=== PATIENT | female | born 1930 | race Caucasian/White ===

== ENCOUNTER 2016-07-21 11:46 | Inpatient (IN) ==
[2016-07-21] MEDS ORDERED: Ipratropium/Albuterol Neb 3 ML IH ONE (12:12)
--- NOTE | 2016-07-21 12:23 | Emergency Department Note ---
Disposition Clinical Impression: CHF (congestive heart failure) Disposition: Admitted As Inpatient Condition: Fair Referrals: Levar Shelton DO [Primary Care Provider] - Forms: ED Satisfaction Letter Time of Disposition: 13:32 (janna GILLETTE ) URI/Sore Throat HPI - General Chief Complaint: ED Upper Respiratory Infection Stated Complaint: cough trouble breathing Time Seen by Provider: 07/21/16 11:52 Source: patient Mode of arrival: ambulatory Limitations: no limitations Nursing Notes Reviewed: Yes Vital Signs Reviewed: Yes - History of Present Illness HPI Narrative: Patient's had increasing shortness of breath since her recent decrease of her Lasix 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 did not like urinating so frequently so he decreased her to 20 mg since then she has had progressively increasing shortness of breath she is having shortness of breath she is having cough and congestion she has had no apnea and no cyanosis increasing dyspnea with activity she has had some orthopnea patient denies any blurred vision double vision loss vision this morning was unable to even drink coffee cup of coffee because of shortness of breath patient now here for evaluation Pt Subjective Complaint: cough, rhinorrhea, nasal congestion Duration: constant Severity: mild Severity scale (1-10): 2 Improves with: nothing Worsens with: nothing Associated symptoms: Reports: cough, shortness of breath. Denies: fever, chills , voice changes, myalgias, diaphoresis, headache, nasal congestion, sore throat , stiff neck, chest pain, abdominal pain, nausea, vomiting, diarrhea, dysuria, epistaxis, ear pain Treatments prior to arrival: none - Related Data Home Medications Medication Instructions Recorded Confirmed Aspirin [Adult Low Dose Aspirin EC] 81 mg PO DAILY 07/01/15 07/21/16 Vit A/Vit C/Vit E/Zinc/Copper 1 tab PO ACHS 07/01/15 07/21/16 [Preservision Areds Tablet] Calcium Carbonate [Calcium] 500 mg PO DAILY 03/14/16 07/21/16 Carvedilol [Coreg] 6.25 mg PO BIDWM 07/21/16 07/21/16 Previous Rx's Medication Instructions Recorded Potassium Chloride 10 meq PO DAILY #30 tab.er.prt 10/24/15 Furosemide [Lasix] 20 mg PO DAILY PRN #90 tablet 10/29/15 Lisinopril [Zestril] 5 mg PO DAILY #90 tablet 10/29/15 Acetaminophen [Tylenol] 650 mg PO Q4HR PRN #0 tablet 03/15/16 Allergies Allergy/AdvReac Type Severity Reaction Status Date / Time No Known Allergies Allergy Verified 07/21/16 11:47 All systems ED: reviewed and negative except as stated. Constitutional: Reports: weakness. Denies: fever, chills Eyes: Denies: vision change ENT ED: Denies: ear pain, throat pain Cardiovascular: Reports: dyspnea on exertion, paroxysmal nocturnal dyspnea. Denies: chest pain, palpitations Respiratory: Reports: wheezes Gastrointestinal: Denies: abdominal pain, nausea Genitourinary: Denies: urgency, dyspareunia Musculoskeletal: Denies: back pain, neck pain Integumentary: Denies: rash, abrasion Neurological: Denies: headache Psychiatric: Denies: anxiety Endocrine: Denies: fatigue Hematological/Lymphatic: Denies: easy bleeding Allergic/Immunologic: Denies: facial swelling URI PMH - Past Medical History Medical history: Reports: arthritis, cardiomyopathy, CHF, hypertension Surgical history: Reports: no surgical history Psychiatric history: Reports: no psych history 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: spontaneous , bilateral tubal ligation - Social History Smoking Status: Former smoker Alcohol use: Reports: none Drug use: Reports: none Physical Exam - General Limitations: no limitations General appearance: alert, in no apparent distress - Head Head exam: atraumatic, normocephalic, normal inspection - Eye Eye exam: Present: normal appearance, PERRL, EOMI - ENT ENT exam: normal exam, normal oropharynx, mucous membranes moist, TM's normal bilaterally, normal external ear exam - Neck Neck exam: Present: normal inspection, full ROM, trachea midline - Chest Chest inspection: Present: normal inspection, symmetric chest wall rise - Respiratory Respiratory exam: Present: wheezes, prolonged expiratory phase - Cardiovascular Cardiovascular exam: Present: regular rate, normal rhythm, normal heart sounds - Abdominal Exam Abdominal exam: Present: soft, Non-Tender, normal bowel sounds - Extremities Exam Extremities exam: Present: normal inspection, full ROM, normal capillary refill. Absent: tenderness, joint swelling - Expanded Lower Extremity Exam Gait: observed and normal - Back Exam Back exam: Present: normal inspection, full ROM. Absent: muscle spasm - Neurological Exam Neurological exam: Present: alert, oriented X3, CN II-XII intact, normal gait - Psychiatric Psychiatric exam: Present: normal affect, normal mood - Skin Skin exam: Present: warm, dry, intact, normal color Course Course Narrative: Patient was seen and examined the workup was done including that of congestive heart failure which was consistent with chest x-ray on review as result patient was admitted MedSurg given Bumex in the ER service of Dr. Mata he has agreed Vital Signs Temperature 98.6 F 07/21/16 11:52 Pulse Rate 94 07/21/16 11:52 Respiratory Rate 07/21/16 11:52 Blood Pressure 133/71 07/21/16 11:52 O2 Sat by Pulse Oximetry 94 L 07/21/16 11:52 Temperature 98.6 F 07/21/16 12:32 Pulse Rate 94 07/21/16 12:32 Respiratory Rate 07/21/16 12:32 Blood Pressure 133/71 07/21/16 12:32 O2 Sat by Pulse Oximetry 94 L 07/21/16 12:32 Oxygen Delivery Oxygen Delivery Room Air Upper Respiratory Infection - MDM Narrative Medical decision making narrative: CHF pneumonia bronchitis influenza - Differential Diagnosis Differential Diagnosis: Likely: other viral infection - Medical Records Medical records reviewed: Yes I reviewed the patient's medical records. - Lab Data Lab results reviewed: Yes I reviewed the patient's lab results. Result diagrams: 07/21/16 12:40 07/21/16 12:40 Lab Results 07/21/16 07/21/16 07/21/16 Range/Units 12:40 12:40 12:40 WBC 3.3 L (4.3-11.1) K/mcL RBC 4.09 (3.82-4.97) M/mcL Hgb 12.2 (11.5-15.4) g/dL Hct 37.4 (35.3-44.9) % MCV 91.4 (83.0-100.0) fL MCH 29.8 (28.0-33.3) pg MCHC 32.6 (31.6-35.5) g/dL RDW 15.0 H (11.5-14.5) % Plt Count 153 (140-400) K/mcL MPV 9.5 (9.4-12.4) fL Immature Gran % 0.3 (0-4) % Seg Neutrophils % 66.1 % Lymphocytes % 22.0 % Monocytes % 10.7 % Eosinophils % 0.3 % Basophils % 0.6 % Neutrophils # 2.2 (1.6-8.9) K/mcL Lymphocytes # 0.7 (0.6-4.6) K/mcL Monocytes # 0.4 (0.0-1.3) K/mcL Eosinophils # 0.0 (0.0-0.6) K/mcL Basophils # 0.0 (0.0-0.2) K/mcL PT (9.4-12.1) Seconds INR APTT 32.4 (26.0-36.0) Seconds Sodium 139 (136-145) mEq/L Potassium 3.8 (3.5-4.5) mEq/L Chloride 101 (98-109) mEq/L Carbon Dioxide 25 (19-29) mEq/L BUN 20 (7-20) mg/dL Creatinine 0.83 (0.57-1.11) mg/dL Est GFR ( Amer) > 60 (> 60) Est GFR (Non-Af Amer) > 60 (> 60) BUN/Creatinine Ratio 24 (6-26) Glucose 97 (70-99) mg/dL Calculated Osmolality 291 (280-300) Calcium 8.8 (8.6-10.8) mg/dL Troponin I (0-0.03) ng/mL B-Natriuretic Peptide (0-100) pg/mL 07/21/16 07/21/16 07/21/16 Range/Units 12:40 12:40 12:40 WBC (4.3-11.1) K/mcL RBC (3.82-4.97) M/mcL Hgb (11.5-15.4) g/dL Hct (35.3-44.9) % MCV (83.0-100.0) fL MCH (28.0-33.3) pg MCHC (31.6-35.5) g/dL RDW (11.5-14.5) % Plt Count (140-400) K/mcL MPV (9.4-12.4) fL Immature Gran % (0-4) % Seg Neutrophils % % Lymphocytes % % Monocytes % % Eosinophils % % Basophils % % Neutrophils # (1.6-8.9) K/mcL Lymphocytes # (0.6-4.6) K/mcL Monocytes # (0.0-1.3) K/mcL Eosinophils # (0.0-0.6) K/mcL Basophils # (0.0-0.2) K/mcL PT 14.2 H (9.4-12.1) Seconds INR 1.3 APTT (26.0-36.0) Seconds Sodium (136-145) mEq/L Potassium (3.5-4.5) mEq/L Chloride (98-109) mEq/L Carbon Dioxide (19-29) mEq/L BUN (7-20) mg/dL Creatinine (0.57-1.11) mg/dL Est GFR ( Amer) (> 60) Est GFR (Non-Af Amer) (> 60) BUN/Creatinine Ratio (6-26) Glucose (70-99) mg/dL Calculated Osmolality (280-300) Calcium (8.6-10.8) mg/dL Troponin I 0.02 (0-0.03) ng/mL B-Natriuretic Peptide 4313 H (0-100) pg/mL - Radiology Data Radiology results reviewed: Yes I reviewed the patient's radiology results. ITS Impressions Chest X-Ray 07/21/16 12:12 IMPRESSION: Pulmonary edema, similar to prior D/ / Alessio Porter MD / Alessio Porter MD Interpreting Provider: Alessio Porter MD - EKG Data EKG attestation: Yes I reviewed and interpreted this EKG. EKG results narrative: Paced rhythm rate 69 VA 148 QRS 127 QT 443 axis XCI Critical Care Time Critical Care Time: No
[2016-07-21 12:59] LABS: Basophils % 0.6 %; Eosinophils % 0.3 %; Hematocrit 37.4 % (35.3-44.9); Hemoglobin 12.2 g/dL (11.5-15.4); INR 1.3; Immature Granulocytes % 0.3 % (0-4); Lymphocytes # 0.7 K/mcL (0.6-4.6); Mean Corpuscular HGB Conc 32.6 g/dL (31.6-35.5); Mean Corpuscular Hemoglobin 29.8 pg (28.0-33.3); Mean Corpuscular Volume 91.4 fL (83.0-100.0); Mean Platelet Volume 9.5 fL (9.4-12.4); Monocytes # 0.4 K/mcL (0.0-1.3); Monocytes % 10.7 %; Neutrophils # 2.2 K/mcL (1.6-8.9); Platelet Count 153 K/mcL (140-400); Prothrombin Time 14.2 Seconds (9.4-12.1); Red Blood Count 4.09 M/mcL (3.82-4.97); Segmented Neutrophils % 66.1 %
[2016-07-21 13:10] LABS: BUN/Creatinine Ratio 24 (6-26); Blood Urea Nitrogen 20 mg/dL (7-20); Calcium 8.8 mg/dL (8.6-10.8); Carbon Dioxide 25 mEq/L (19-29); Chloride 101 mEq/L (98-109); Glucose 97 mg/dL (70-99); Osmolality,Calculated 291 (280-300); Potassium 3.8 mEq/L (3.5-4.5); Sodium 139 mEq/L (136-145); eGFR For African Americans > 60 (> 60); eGFR For Non-African Americans > 60 (> 60)
[2016-07-21] MEDS ORDERED: Bumetanide 1 MG/4 ML VIAL IVP ONE (13:18)
[2016-07-21] MEDS ORDERED: Acetaminophen 325 MG TABLET PO PRN (14:21)
[2016-07-21] MEDS ORDERED: Naloxone 0.4 MG/ML INJ IVP PRN (14:21)
[2016-07-21] MEDS: Bumetanide 1 MG/4 ML VIAL IVP SCH (18:15)
[2016-07-22 06:51] LABS: BUN/Creatinine Ratio 24 (6-26); Blood Urea Nitrogen 20 mg/dL (7-20); Calcium 8.5 mg/dL (8.6-10.8); Carbon Dioxide 26 mEq/L (19-29); Chloride 99 mEq/L (98-109); Glucose 101 mg/dL (70-99); Osmolality,Calculated 291 (280-300); Potassium 3.7 mEq/L (3.5-4.5); Sodium 139 mEq/L (136-145); eGFR For African Americans > 60 (> 60); eGFR For Non-African Americans > 60 (> 60)
[2016-07-22] MEDS ORDERED: *HR* Digoxin 0.25 MG TABLET PO ONE (07:03)
--- NOTE | 2016-07-22 07:14 | Internal Med History&Physical ---
Date of Encounter: 07/22/16 Time of Encounter: 06:30 Assessment and Plan (1) Nonischemic cardiomyopathy Current visit: No Status: Acute Suspect primary etiology of her dyspnea. We will order chest CT to further evaluate for lung disease. She is been started on IV diuretics. I will add oral Lanoxin and continue her Coreg and lisinopril (2) Hypertension Current visit: No Status: Acute Continue Coreg and Zestril and Bumex. Qualifiers: Hypertension type: essential hypertension Qualified Code(s): I10 - Essential (primary) hypertension Internal Medicine - H&P: HPI Chief complaint: Dyspnea Admitted From: Home Plans for Post Hospital Care: Home History of present illness: Ms. Parson is a 85 year old female who came to emergency room complaining of dyspnea onset 2 weeks earlier. She had mentioned to her PCP Dr. Shelton that she was urinating excessively. She states he changed her Lasix to Bumex (dose not known). She has urinated less but has become more dyspneic. She denies any cough or chest pain. She was evaluated in emergency room and felt to have exacerbation of heart failure. She was admitted to [facility] floor for ongoing care needs. Her cardiac history is significant for hypertension but no known MN DVT or pulmonary embolus. She had a heart catheter done 10/27/2015 which showed nonobstructive CAD but LVEF of 30 %. She was diagnosed with nonischemic cardiopathy. Denies missing any of her medications. She had an echocardiogram done 02/19/2016 which showed LVEF of 30-35% with severe LV systolic dysfunction and atypical septal motion. There was mild diastolic dysfunction seen. There was moderate to severe mitral regurgitation and moderate TR with mild pulmonary regurgitation. The RVSP estimate was elevated at 59 mmHg. A small circumferential pericardial effusion was seen without evidence of tamponade. She states her dyspnea has not improved since coming to emergency room. Past Med Surg Social Fam HX - Past Medical History Medical history: arthritis, CHF, hypertension Psychiatric history: no psych history - Past Surgical History Surgical History: no surgical history, cataract, AICD, pacemaker - Social History Smoking Status: Former smoker Smokeless Tobacco Status: No Alcohol use: none Drug use: none - Family History Mother Hx Family Cardiac Disorders: Yes Father Hx Family Cardiac Disorders: Yes Internal Medicine - H&P: Meds Aspirin [Adult Low Dose Aspirin EC] 81 mg PO DAILY 07/01/15 [History] Vit A/Vit C/Vit E/Zinc/Copper [Preservision Areds Tablet] 1 tab PO ACHS [History] Potassium Chloride 10 meq PO DAILY #30 tab.er.prt 10/24/15 [Rx] Lisinopril [Zestril] 5 mg PO DAILY #90 tablet 10/29/15 [Rx] Calcium Carbonate [Calcium] 500 mg PO DAILY 03/14/16 [History] Acetaminophen [Tylenol] 650 mg PO Q4HR PRN #0 tablet 03/15/16 [Rx] Bumetanide 0.5 mg PO DAILY 07/21/16 [History] Carvedilol [Coreg] 6.25 mg PO BIDWM 07/21/16 [History] Allergies No Known Allergies Allergy (Verified 07/21/16 11:47) All Systems PM: A 10-system review of systems was performed and is negative for pertinent findings except as documented above in the HPI. Review of systems: Gen.: Her weight has been stable past few months. Cardiovascular: As per history of present illness Respiratory: She smoked from age [age] up to 2 packs per day. She does not wear home oxygen and denies chronic lung disease. GI: She denies disorders of her liver gallbladder or exocrine pancreas. She states she had colonoscopy in 2012 which was negative. : She denies hematuria dysuria or kidney stones Neurologic: She denies large distribution strokes or seizures Endocrine: She had hyperthyroid condition treated with radioactive iodine several years ago. TSH done 02/08/2014 was normal at 1.51. She denies diabetes or hyperlipidemia Hematology/oncology: She denies blood disorders cancers or anemia Psychiatric: She denies anxiety depression or other mental health issues Musk skeletal: She has DJD but no known gout or osteoporosis. - Constitutional Vitals: Temp Pulse Resp BP Pulse Ox 100.0 F H 85 28 135/77 97 07/22/16 06:28 07/22/16 06:28 07/22/16 06:28 07/22/16 06:28 07/22/16 06:28 Exam: Gen.: She is a well-developed well-nourished female who appears mildly dyspneic at rest HEENT: Head is atraumatic and normocephalic. Eyes: EOMI. There is no scleral icterus. Mouth: Mucosa is moist. Neck: Supple and nontender. There is no thyromegaly or adenopathy noted. Heart: Regular without murmurs gallops or ectopics Lungs: She has scattered expiratory rhonchi. Abdomen: Soft and nontender. No masses or guarding are noted. Extremities: There is no cyanosis edema or clubbing noted. Dorsalis pedis and posterior tibial pulses are trace palpable bilaterally. Neurologic: Mental status: She is talkative and a good historian. Cranial nerves: Smile is symmetric. Forehead wrinkles bilaterally. Tongue protrudes midline. EOMI. Motor: There is no pronator drift. Cerebellar: Finger to nose is intact bilaterally. Skin: Warm and dry Internal Med - H&P Results - Labs CBC & Chem 7: 07/21/16 12:40 07/22/16 06:00 Labs: BMP 07/22/16 06:00 Sodium 139 Potassium 3.7 Chloride 99 Carbon Dioxide 26 BUN 20 Creatinine 0.85 Glucose 101 H Calcium 8.5 L Cardiac Enzymes 07/21/16 07/22/16 Range/Units 18:03 00:30 Troponin I 0.02 0.02 (0-0.03) ng/mL
[2016-07-22] MEDS: Bumetanide 1 MG/4 ML VIAL IVP SCH ×2 (08:42→17:11)
[2016-07-22] MEDS: Multivit/Ca/Min/Fe/FA 1 TAB TABLET PO SCH (08:42)
[2016-07-22] MEDS: Aspirin Enteric Coated 81 MG Tablet PO SCH (08:42)
[2016-07-22] MEDS: Azithromycin 500 MG in D5% in Water 250 ML IVPB SCH (12:29)
[2016-07-22] MEDS: CefTRIAXone 1,000 MG in D5% in Water (Mini-Bag+) 100 ML IVPB SCH (14:25)
--- NOTE | 2016-07-22 15:01 | Electrocardiograph Report ---
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
[2016-07-23] MEDS: Lactobacillus 1 EACH CAP.SPRINK PO SCH ×3 (02:54→22:52)
[2016-07-23 06:01] LABS: Hematocrit 36.6 % (35.3-44.9); Hemoglobin 11.8 g/dL (11.5-15.4); Immature Granulocytes % 0.2 % (0-4); Mean Corpuscular HGB Conc 32.2 g/dL (31.6-35.5); Mean Corpuscular Hemoglobin 29.7 pg (28.0-33.3); Mean Corpuscular Volume 92.2 fL (83.0-100.0); Mean Platelet Volume 9.6 fL (9.4-12.4); Platelet Count 136 K/mcL (140-400); Red Blood Count 3.97 M/mcL (3.82-4.97); Red Cell Distribution Width 14.7 % (11.5-14.5)
[2016-07-23 06:14] LABS: BUN/Creatinine Ratio 23 (6-26); Blood Urea Nitrogen 18 mg/dL (7-20); Calcium 8.6 mg/dL (8.6-10.8); Carbon Dioxide 30 mEq/L (19-29); Chloride 99 mEq/L (98-109); Glucose 99 mg/dL (70-99); Osmolality,Calculated 290 (280-300); Potassium 3.9 mEq/L (3.5-4.5); Sodium 139 mEq/L (136-145); eGFR For African Americans > 60 (> 60); eGFR For Non-African Americans > 60 (> 60)
[2016-07-23 07:18] LABS: Monocytes # 0.1 K/mcL (0.0-1.3)
[2016-07-23] MEDS: Bumetanide 1 MG/4 ML VIAL IVP SCH ×2 (08:36→17:51)
[2016-07-23] MEDS: Aspirin Enteric Coated 81 MG Tablet PO SCH (08:37)
[2016-07-23] MEDS: Multivit/Ca/Min/Fe/FA 1 TAB TABLET PO SCH (08:37)
[2016-07-23] MEDS: CefTRIAXone 1,000 MG in D5% in Water (Mini-Bag+) 100 ML IVPB SCH (08:38)
[2016-07-23] MEDS: Albuterol 2.5 MG/3 ML NEBULIZER IH PRN ×2 (09:28→13:58)
--- NOTE | 2016-07-23 10:39 | Internal Med Progress Note ---
Date of Encounter: 07/23/16 Time of Encounter: 10:30 - Assessment and plan (1) Nonischemic cardiomyopathy Current Visit: No Status: Acute Assessment and plan: July 23. Continue present regimen (2) Hypertension Current Visit: No Status: Acute Assessment and plan: July 23. Continue Coreg Zestril and Bumex. Qualifiers: Hypertension type: essential hypertension Qualified Code(s): I10 - Essential (primary) hypertension (3) Pneumonia Current Visit: Yes Status: Acute Assessment and plan: July 23. Continue Rocephin and Zithromax with lactobacillus. Qualifiers: Laterality: bilateral Lung location: unspecified part of lung Qualified Code(s): J18.9 - Pneumonia, unspecified organism - Subjective Interval history: July 23. She has no new complaints. She still feels dyspneic. She has minimally productive cough. - Constitutional Vitals: Temp Pulse Resp BP Pulse Ox 98.2 F 76 20 163/78 95 07/23/16 08:00 07/23/16 08:00 07/23/16 09:28 07/23/16 08:00 07/23/16 09:28 Exam: She appears slightly dyspneic lying in bed. Her lungs show prolonged expiratory phase with mild wheezing and scattered rhonchi. Heart tones are soft but there seems to be regular rhythm. I reviewed her medications and lab results. I reviewed her chest CT yesterday showing bilateral infiltrates. He was started on Rocephin and Zithromax. Internal Medicine: Result - Labs CBC & Chem 7: 07/23/16 05:26 07/23/16 05:26 Labs: Short CBC 07/23/16 Range/Units 05:26 WBC 4.1 L (4.3-11.1) K/mcL Hgb 11.8 (11.5-15.4) g/dL Hct 36.6 (35.3-44.9) % Plt Count 136 L (140-400) K/mcL Neutrophils # 3.0 (1.6-8.9) K/mcL BMP 07/23/16 05:26 Sodium 139 Potassium 3.9 Chloride 99 Carbon Dioxide 30 H BUN 18 Creatinine 0.78 Glucose 99 Calcium 8.6 - ABG Interpretation ABG results: PT/INR, D-dimer PT 14.2 Seconds (9.4-12.1) H 07/21/16 12:40 - Impressions Impressions Chest CT 07/22/16 07:01 IMPRESSION: 1. Multifocal airspace consolidation throughout both lungs, most consistent with multifocal pneumonia. However, as some of the consolidative opacities throughout both lungs have a nodular appearance, suggest appropriate clinical treatment, and short-term chest CT follow-up in 8-12 weeks to ensure resolution of these findings and to exclude underlying pulmonary nodules. 2. Mild bronchitis. 3. Stable mild subcarinal lymphadenopathy, likely benign and reactive in etiology given its stability from the prior study of 09/2015. 4. Small pericardial effusion. 5. Persistent 1.9 x 1.1 cm partially calcified nodular density in the region of the superior right thyroid lobe, possibly a calcified thyroid nodule. Recommend further evaluation of this abnormality with a routine follow-up thyroid ultrasound as outlined below. RECOMMENDATIONS: Managing Incidental Thyroid Nodule Detected at CT or MRI or US 1. Further evaluation by thyroid Ultrasound recommended for these incidental nodules: Patient Age 18 years or less - Any nodule. Patient Age 19-34 years old - Nodule 1 cm in size or greater Patient Age 35 years or more - Nodule 1.5 cm in size or greater 2. Follow up thyroid ultrasound also recommend in these scenarios -Solitary nodule with high risk imaging features (locally invasive nodule or suspicious lymph nodes) -Any nodule in a heterogeneous enlarged thyroid gland 3. NO further imaging is recommended in the following scenarios -No f/u imaging is recommended for ITNs not meeting the above criteria. -No US or f/u recommended for ITNs without high risk features in pts. with limited life expectancy or significant co-morbidities, unless clinically warranted. Note: These recommendations do not apply to pts. w/ increased risk for thyroid cancer or pts. with symptomatic thyroid disease. Recommendations for f/u of Incidental Thyroid Nodules (ITN) found on CT, MR, NM and Extrathyroidal US are based upon the ACR white paper and Cooper 3-tiered system for managing ITNs: J Am Bernadette Radiol. 2015 Jun;12(2): 143-50 D/ / 07/22/2016 08:42:15 Hermilo Perry MD / guerda Interpreting Provider: Hermilo Perry MD Consult Discharge Plan - Plan Referrals: Levar Shelton, DO [Primary Care Provider] - 1 week
[2016-07-23] MEDS: *HR* Digoxin 0.25 MG TABLET PO SCH (13:44)
[2016-07-23] MEDS: Azithromycin 500 MG in D5% in Water 250 ML IVPB SCH (13:46)
[2016-07-23] MEDS: *HR* Enoxaparin 40 MG/0.4 ML SYRINGE SQ SCH (13:47)
[2016-07-24] MEDS: Albuterol 2.5 MG/3 ML NEBULIZER IH PRN (04:51)
[2016-07-24 05:05] LABS: Eosinophils # 0.2 K/mcL (0.0-0.6); Eosinophils % 5.2 %; Hematocrit 38.4 % (35.3-44.9); Hemoglobin 12.3 g/dL (11.5-15.4); Immature Granulocytes % 0.3 % (0-4); Lymphocytes # 0.9 K/mcL (0.6-4.6); Lymphocytes % 30.1 %; Mean Corpuscular Hemoglobin 29.2 pg (28.0-33.3); Mean Corpuscular Volume 91.2 fL (83.0-100.0); Mean Platelet Volume 9.3 fL (9.4-12.4); Monocytes # 0.3 K/mcL (0.0-1.3); Monocytes % 8.1 %; Neutrophils # 1.7 K/mcL (1.6-8.9); Platelet Count 140 K/mcL (140-400); Red Blood Count 4.21 M/mcL (3.82-4.97); Red Cell Distribution Width 14.3 % (11.5-14.5); Segmented Neutrophils % 55.3 %
[2016-07-24] MEDS: *HR* Enoxaparin 40 MG/0.4 ML SYRINGE SQ SCH (05:25)
[2016-07-24 05:38] LABS: Alanine Aminotransferase 31 Units/L (0-55); Albumin 2.9 g/dL (3.5-5.0); Albumin/Globulin Ratio 0.9 (1.1-2.2); Alkaline Phosphatase 45 Units/L (38-126); Aspartate Amino Transferase 26 Units/L (5-34); BUN/Creatinine Ratio 22 (6-26); Bilirubin,Total 0.5 mg/dL (0.2-1.2); Blood Urea Nitrogen 17 mg/dL (7-20); Calcium 8.5 mg/dL (8.6-10.8); Carbon Dioxide 30 mEq/L (19-29); Chloride 98 mEq/L (98-109); Globulin 3.2 g/dL (2.4-3.5); Glucose 93 mg/dL (70-99); Osmolality,Calculated 285 (280-300); Potassium 3.8 mEq/L (3.5-4.5); Sodium 137 mEq/L (136-145); Total Protein 6.1 g/dL (6.0-8.3); eGFR For African Americans > 60 (> 60); eGFR For Non-African Americans > 60 (> 60)
[2016-07-24 06:35] LABS: Platelet Estimate Normal (Normal)
[2016-07-24] MEDS: Lactobacillus 1 EACH CAP.SPRINK PO SCH ×2 (08:35→22:14)
[2016-07-24] MEDS: Aspirin Enteric Coated 81 MG Tablet PO SCH (08:35)
[2016-07-24] MEDS: *HR* Digoxin 0.25 MG TABLET PO SCH (08:36)
[2016-07-24] MEDS: Multivit/Ca/Min/Fe/FA 1 TAB TABLET PO SCH (08:36)
[2016-07-24] MEDS: Bumetanide 1 MG/4 ML VIAL IVP SCH ×2 (08:37→17:55)
[2016-07-24] MEDS: CefTRIAXone 1,000 MG in D5% in Water (Mini-Bag+) 100 ML IVPB SCH (11:04)
--- NOTE | 2016-07-24 11:34 | Internal Med Progress Note ---
Date of Encounter: 07/24/16 Time of Encounter: 11:15 - Assessment and plan (1) Nonischemic cardiomyopathy Current Visit: No Status: Acute Assessment and plan: July 23. Continue present regimen July 24. Continue present regimen. Bn peptide continues to improve (2) Hypertension Current Visit: No Status: Acute Assessment and plan: July 23. Continue Coreg Zestril and Bumex. Qualifiers: Hypertension type: essential hypertension Qualified Code(s): I10 - Essential (primary) hypertension (3) Pneumonia Current Visit: Yes Status: Acute Assessment and plan: July 23. Continue Rocephin and Zithromax with lactobacillus. Qualifiers: Laterality: bilateral Lung location: unspecified part of lung Qualified Code(s): J18.9 - Pneumonia, unspecified organism - Subjective Interval history: July 23. She has no new complaints. She still feels dyspneic. She has minimally productive cough. July 24. She has no new complaints and feels better. - Constitutional Vitals: Temp Pulse Resp BP Pulse Ox 98.0 F 64 16 123/60 93 L 07/24/16 11:03 07/24/16 11:03 07/24/16 11:03 07/24/16 11:03 07/24/16 11:03 Exam: She is resting comfortably in bed. She does not appear dyspneic. Her affect is bright and cheerful. I reviewed her medications and lab results. Internal Medicine: Result - Labs CBC & Chem 7: 07/24/16 04:42 07/24/16 04:42 Labs: Short CBC 07/24/16 Range/Units 04:42 WBC 3.1 L (4.3-11.1) K/mcL Hgb 12.3 (11.5-15.4) g/dL Hct 38.4 (35.3-44.9) % Plt Count 140 (140-400) K/mcL Neutrophils # 1.7 (1.6-8.9) K/mcL BMP 07/24/16 04:42 Sodium 137 Potassium 3.8 Chloride 98 Carbon Dioxide 30 H BUN 17 Creatinine 0.77 Glucose 93 Calcium 8.5 L Liver Function 07/24/16 Range/Units 04:42 Total Bilirubin 0.5 (0.2-1.2) mg/dL AST 26 (5-34) Units/L ALT 31 (0-55) Units/L Alkaline Phosphatase 45 (38-126) Units/L Albumin 2.9 L (3.5-5.0) g/dL - ABG Interpretation ABG results: PT/INR, D-dimer PT 14.2 Seconds (9.4-12.1) H 07/21/16 12:40 Consult Discharge Plan - Plan Referrals: Levar Shelton DO [Primary Care Provider] - 1 week
[2016-07-24] MEDS: Azithromycin 500 MG in D5% in Water 250 ML IVPB SCH (11:47)
[2016-07-25 04:52] LABS: Basophils % 0.4 %; Eosinophils # 0.2 K/mcL (0.0-0.6); Eosinophils % 6.7 %; Hematocrit 34.5 % (35.3-44.9); Hemoglobin 11.1 g/dL (11.5-15.4); Immature Granulocytes % 0.7 % (0-4); Lymphocytes # 1.1 K/mcL (0.6-4.6); Lymphocytes % 37.9 %; Mean Corpuscular HGB Conc 32.2 g/dL (31.6-35.5); Mean Corpuscular Hemoglobin 29.4 pg (28.0-33.3); Mean Corpuscular Volume 91.3 fL (83.0-100.0); Mean Platelet Volume 9.5 fL (9.4-12.4); Monocytes # 0.3 K/mcL (0.0-1.3); Monocytes % 8.9 %; Neutrophils # 1.3 K/mcL (1.6-8.9); Platelet Count 142 K/mcL (140-400); Red Blood Count 3.78 M/mcL (3.82-4.97); Red Cell Distribution Width 14.1 % (11.5-14.5); Segmented Neutrophils % 45.4 %
[2016-07-25 05:35] LABS: Platelet Estimate Normal (Normal)
[2016-07-25] MEDS: *HR* Enoxaparin 40 MG/0.4 ML SYRINGE SQ SCH (05:54)
[2016-07-25] MEDS: CefTRIAXone 1,000 MG in D5% in Water (Mini-Bag+) 100 ML IVPB SCH (09:23)
[2016-07-25] MEDS: Bumetanide 1 MG/4 ML VIAL IVP SCH (09:25)
[2016-07-25] MEDS: Lactobacillus 1 EACH CAP.SPRINK PO SCH ×2 (09:25→20:31)
[2016-07-25] MEDS: *HR* Digoxin 0.25 MG TABLET PO SCH (09:28)
[2016-07-25] MEDS: Multivit/Ca/Min/Fe/FA 1 TAB TABLET PO SCH (09:30)
[2016-07-25] MEDS: Aspirin Enteric Coated 81 MG Tablet PO SCH (09:31)
[2016-07-25] MEDS: Albuterol 2.5 MG/3 ML NEBULIZER IH PRN (10:33)
--- NOTE | 2016-07-25 12:13 | Internal Med Progress Note ---
Date of Encounter: 07/25/16 Time of Encounter: 12:00 - Assessment and plan (1) Nonischemic cardiomyopathy Current Visit: No Status: Acute Assessment and plan: July 23. Continue present regimen July 24. Continue present regimen. Bn peptide continues to improve July 25. We will recheck labs in a.m. Continue present management. Will order PT and OT evaluations since she appears weak. She may go to swing bed tomorrow if unable to be discharged home. (2) Hypertension Current Visit: No Status: Acute Assessment and plan: July 23. Continue Coreg Zestril and Bumex. Qualifiers: Hypertension type: essential hypertension Qualified Code(s): I10 - Essential (primary) hypertension (3) Pneumonia Current Visit: Yes Status: Acute Assessment and plan: July 23. Continue Rocephin and Zithromax with lactobacillus. July 25. I note she has leukopenia now with resolution of the left shift. I told her she might have viral pneumonia. I will order respiratory virus panel Qualifiers: Laterality: bilateral Lung location: unspecified part of lung Qualified Code(s): J18.9 - Pneumonia, unspecified organism - Subjective Interval history: July 23. She has no new complaints. She still feels dyspneic. She has minimally productive cough. July 24. She has no new complaints and feels better. July 25. She has no new complaints. She still feels dyspneic and unable to ambulate well. - Constitutional Vitals: Temp Pulse Resp BP Pulse Ox 98.1 F 59 18 109/49 95 07/25/16 10:58 07/25/16 10:58 07/25/16 10:58 07/25/16 10:58 07/25/16 10:58 Exam: She is lying in bed and appears slightly dyspneic. Her affect is bright and cheerful. I reviewed her medications and lab results. Internal Medicine: Result - Labs CBC & Chem 7: 07/25/16 04:47 07/24/16 04:42 Labs: Short CBC 07/25/16 Range/Units 04:47 WBC 2.8 L (4.3-11.1) K/mcL Hgb 11.1 L (11.5-15.4) g/dL Hct 34.5 L (35.3-44.9) % Plt Count 142 (140-400) K/mcL Neutrophils # 1.3 L (1.6-8.9) K/mcL - ABG Interpretation ABG results: PT/INR, D-dimer PT 14.2 Seconds (9.4-12.1) H 07/21/16 12:40 Consult Discharge Plan - Plan Referrals: Levar Shelton DO [Primary Care Provider] - 1 week
[2016-07-25] MEDS: Azithromycin 500 MG in D5% in Water 250 ML IVPB SCH (13:51)
[2016-07-26 05:22] LABS: Basophils % 0.3 %; Eosinophils # 0.2 K/mcL (0.0-0.6); Eosinophils % 5.9 %; Hematocrit 34.1 % (35.3-44.9); Hemoglobin 10.8 g/dL (11.5-15.4); Immature Granulocytes % 0.3 % (0-4); Lymphocytes % 34.6 %; Mean Corpuscular HGB Conc 31.7 g/dL (31.6-35.5); Mean Corpuscular Volume 91.7 fL (83.0-100.0); Mean Platelet Volume 9.2 fL (9.4-12.4); Monocytes # 0.3 K/mcL (0.0-1.3); Neutrophils # 1.4 K/mcL (1.6-8.9); Platelet Count 158 K/mcL (140-400); Red Blood Count 3.72 M/mcL (3.82-4.97); Segmented Neutrophils % 48.9 %
[2016-07-26 05:46] LABS: BUN/Creatinine Ratio 16 (6-26); Blood Urea Nitrogen 10 mg/dL (7-20); Calcium 8.5 mg/dL (8.6-10.8); Carbon Dioxide 29 mEq/L (19-29); Chloride 99 mEq/L (98-109); Glucose 90 mg/dL (70-99); Osmolality,Calculated 283 (280-300); Potassium 3.9 mEq/L (3.5-4.5); Sodium 137 mEq/L (136-145); eGFR For African Americans > 60 (> 60); eGFR For Non-African Americans > 60 (> 60)
[2016-07-26] MEDS ORDERED: *HR* Enoxaparin 40 MG/0.4 ML SYRINGE SQ SCH (06:00)
[2016-07-26 06:04] LABS: Platelet Estimate Normal (Normal)
[2016-07-26] MEDS: *HR* Digoxin 0.25 MG TABLET PO SCH (08:19)
[2016-07-26] MEDS: Aspirin Enteric Coated 81 MG Tablet PO SCH (08:21)
[2016-07-26] MEDS: Lactobacillus 1 EACH CAP.SPRINK PO SCH (08:21)
[2016-07-26] MEDS: Multivit/Ca/Min/Fe/FA 1 TAB TABLET PO SCH (08:21)
[2016-07-26] MEDS ORDERED: Bumetanide 1 MG TABLET PO SCH (09:00)
[2016-07-26] MEDS: CefTRIAXone 1,000 MG in D5% in Water (Mini-Bag+) 100 ML IVPB SCH (11:12)
--- NOTE | 2016-07-26 12:11 | Discharge Summary ---
Date of Encounter: 07/26/16 Time of Encounter: 11:55 - Discharge Diagnosis (1) Pneumonia Priority: Primary Status: Acute Qualifiers: Pneumonia type: due to unspecified organism Laterality: bilateral Lung location: unspecified part of lung Qualified Code(s): J18.9 - Pneumonia, unspecified organism (2) Nonischemic cardiomyopathy Priority: Secondary Status: Chronic (3) Hypertension Priority: Secondary Status: Chronic Qualifiers: Hypertension type: essential hypertension Qualified Code(s): I10 - Essential (primary) hypertension - Discharge Medications Prescriptions: Isosorbide MONOnitrate (24 HR) [Imdur] 30 mg PO DAILY 365 Days Home Medications: Aspirin [Adult Low Dose Aspirin EC] 81 mg PO DAILY 07/01/15 [History] Vit A/Vit C/Vit E/Zinc/Copper [Preservision Areds Tablet] 1 tab PO ACHS [History] Potassium Chloride 10 meq PO DAILY #30 tab.er.prt 10/24/15 [Rx] Calcium Carbonate [Calcium] 500 mg PO DAILY 03/14/16 [History] Acetaminophen [Tylenol] 650 mg PO Q4HR PRN #0 tablet 03/15/16 [Rx] Carvedilol [Coreg] 6.25 mg PO BIDWM 07/21/16 [History] Albuterol Neb [Proventil Neb] 2.5 mg IH Q2H PRN #0 inhsol 07/26/16 [Rx] Azithromycin [Zithromax] 500 mg IVPB Q24H vial 07/26/16 [Rx] Bumetanide [Bumex] 1 mg PO DAILY tablet 07/26/16 [Rx] CefTRIAXone [Rocephin] 1,000 mg IVPB Q24H vial 07/26/16 [Rx] Digoxin [Lanoxin] 0.25 mg PO DAILY tablet 07/26/16 [Rx] GuaiFENesin/Dextromethorphan [Robitussin/Dm] 10 ml PO Q6HR udc 07/26/16 [Rx] Isosorbide MONOnitrate (24 HR) [Imdur] 30 mg PO DAILY 365 Days 07/26/16 [Rx] Lactobacillus [Culturelle] 1 each PO BID cap.sprink 07/26/16 [Rx] Lisinopril [Zestril] 10 mg PO DAILY tablet 07/26/16 [Rx] Potassium Chloride 10 meq PO DAILY tab.er.prt 07/26/16 [Rx] Allergies/Adverse Reactions: Allergies No Known Allergies Allergy (Verified 07/21/16 11:47) Date of admission: 07/23/16 10:41 Primary care physician: Levar Shelton DO Consults: 07/25/16 12:06 Consult to Occupational Therapy [CONS] Routine Comment: Evaluate, develop and implement POC Consult to Physical Therapy [CONS] Routine Comment: Evaluate, develop and implement POC - Patient Status Disposition: Transfer Hospital Swing Bed Condition: Fair Overall status at discharge: patient is progressing back to baseline - Discharge Instructions - Diet and Activity Activity: as per physical therapy Hospital course: Ms. Parson is a 85 year old female who came to emergency room complaining of dyspnea onset 2 weeks earlier. She had mentioned to her PCP Dr. Shelton that she was urinating excessively. She states he changed her Lasix to Bumex (dose not known). She has urinated less but has become more dyspneic. She denies any cough or chest pain. She was evaluated in emergency room and felt to have exacerbation of heart failure. She was admitted to [facility] for ongoing care needs. Initial orders were written by the emergency room physician. I saw her on July 22 and performed the history and physical. A chest CT was done and showed multifocal airspace consolidation throughout both lungs consistent with multifocal pneumonia. Some of the consolidative opacities had nodular appearance with repeat CT chest recommended in 8-12 weeks. There was evidence of mild bronchitis and mild subcarinal lymphadenopathy stable since September 2015. 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 Further evaluation could be done with an ultrasound. She was started on IV Rocephin and Zithromax with lactobacillus added. WBC decreased to 2.9 on the day of discharge with 48.9 % segs and 34.6 % lymphs. She will continue on antibiotics for an additional 1-2 days in swing bed. Her blood pressure remained satisfactorily controlled during her hospital stay. I added Lanoxin during the hospital stay and there was marked improvement in the Bn peptide to 2113 on the day of discharge. Isosorbide will be added and Lanoxin dose increased at discharge with further monitoring done in swing bed. On July 26 arrangements were completed for her to be transitioned into swing bed where she will continue to receive PT and OT and IV antibiotics until she is clinically improved enough to return home. - Time Spent with Patient Total time spent providing and/or coordinating discharge services: - Constitutional Vitals: Temp Pulse Resp BP Pulse Ox 97.9 F 62 18 138/69 98 07/26/16 11:00 07/26/16 11:00 07/26/16 11:00 07/26/16 11:00 07/26/16 11:00
[2016-07-26 12:33] VITALS: BP 134/65
[2016-07-26] MEDS: Azithromycin 500 MG in D5% in Water 250 ML IVPB SCH (12:36)
[2016-07-27 15:21] LABS: Adenovirus Not Detected (Not Detect); Bordetella Pertussis Not Detected (Not Detect); Chlamydophila pneumoniae Not Detected (Not Detect); Coronavirus 229E Not Detected (Not Detect); Coronavirus HKU1 Not Detected (Not Detect); Coronavirus NL63 Not Detected (Not Detect); Coronavirus OC43 Not Detected (Not Detect); Human Metapneumovirus ***DETECTED*** (Not Detect); Human Rhinovirus/Enterovirus Not Detected (Not Detect); Influenza A Subtype 2009 H1 Not Detected (Not Detect); Influenza A Untypeable Not Detected (Not Detect); Influenza B Not Detected (Not Detect); Mycoplasma pneumoniae Not Detected (Not Detect); Parainfluenza Virus 1 Not Detected (Not Detect); Parainfluenza Virus 2 Not Detected (Not Detect); Parainfluenza Virus 3 Not Detected (Not Detect); Parainfluenza Virus 4 Not Detected (Not Detect); Respiratory Syncytial Virus Not Detected (Not Detect)
== END 2016-07-26 14:14 | disposition other institution (70) | DRG 194 ==
LOC: EMEROOPIK 11:46 → INPPIK 11:46
PROVIDERS: ADMIT Internal Medicine; ATTEND Internal Medicine

== ENCOUNTER 2016-07-26 14:24 | Inpatient (IN) ==
[2016-07-26] MEDS ORDERED: Albuterol 2.5 MG/3 ML NEBULIZER IH PRN (15:00)
[2016-07-26] MEDS: Lactobacillus 1 EACH CAP.SPRINK PO SCH (21:07)
[2016-07-27 05:28] LABS: Eosinophils # 0.2 K/mcL (0.0-0.6); Hematocrit 35.4 % (35.3-44.9); Hemoglobin 11.3 g/dL (11.5-15.4); Mean Corpuscular HGB Conc 31.9 g/dL (31.6-35.5); Mean Corpuscular Hemoglobin 29.4 pg (28.0-33.3); Mean Corpuscular Volume 92.2 fL (83.0-100.0); Mean Platelet Volume 9.4 fL (9.4-12.4); Monocytes # 0.3 K/mcL (0.0-1.3); Neutrophils # 1.5 K/mcL (1.6-8.9); Platelet Count 189 K/mcL (140-400); Red Blood Count 3.84 M/mcL (3.82-4.97)
[2016-07-27 05:38] LABS: INR 1.1
[2016-07-27 05:50] LABS: BUN/Creatinine Ratio 15 (6-26); Blood Urea Nitrogen 11 mg/dL (7-20); Calcium 8.7 mg/dL (8.6-10.8); Carbon Dioxide 31 mEq/L (19-29); Chloride 99 mEq/L (98-109); Glucose 86 mg/dL (70-99); Osmolality,Calculated 285 (280-300); Potassium 4.1 mEq/L (3.5-4.5); Sodium 138 mEq/L (136-145); eGFR For African Americans > 60 (> 60); eGFR For Non-African Americans > 60 (> 60)
[2016-07-27 06:05] LABS: Basophils # 0.1 K/mcL (0.0-0.2); Lymphocytes # 1.2 K/mcL (0.6-4.6)
[2016-07-27 06:07] LABS: Platelet Estimate Normal (Normal)
[2016-07-27] MEDS ORDERED: Acetaminophen 325 MG TABLET PO SCH (08:00)
[2016-07-27] MEDS: Lactobacillus 1 EACH CAP.SPRINK PO SCH (08:48)
[2016-07-27] MEDS: *HR* Digoxin 0.25 MG TABLET PO SCH (08:49)
[2016-07-27] MEDS: Aspirin Enteric Coated 81 MG Tablet PO SCH (08:49)
[2016-07-27] MEDS: Multivit/Ca/Min/Fe/FA 1 TAB TABLET PO SCH (08:49)
[2016-07-27] MEDS ORDERED: Isosorbide MONOnitrate (24 HR) 30 MG TAB.ER.24H PO SCH (09:00)
[2016-07-27] MEDS ORDERED: Bumetanide 1 MG TABLET PO SCH (09:00)
[2016-07-27] MEDS ORDERED: CefTRIAXone 1,000 MG VIAL IVPB SCH (11:00)
[2016-07-27] MEDS ORDERED: Azithromycin 500 MG VIAL IVPB SCH (12:00)
[2016-07-27] MEDS ORDERED: Azithromycin 500 MG in D5% in Water 250 ML IVPB SCH (14:00)
[2016-07-27] MEDS ORDERED: CefTRIAXone 1,000 MG in D5% in Water (Mini-Bag+) 100 ML IVPB SCH (14:00)
--- NOTE | 2016-07-27 16:26 | Internal Med Progress Note ---
Date of Encounter: 07/27/16 Time of Encounter: 16:15 - Assessment and plan (1) Pneumonia Current Visit: No Status: Acute Assessment and plan: July 27. Serology has returned showing PCR of Human Metapneumovirus. We will discontinue antibiotics and lactobacillus and continue supportive care. Qualifiers: Pneumonia type: due to unspecified organism Laterality: bilateral Lung location: unspecified part of lung Qualified Code(s): J18.9 - Pneumonia, unspecified organism (2) Nonischemic cardiomyopathy Current Visit: No Status: Chronic Assessment and plan: July 27. Her bn peptide remains elevated at 2384. I will increase isosorbide and Bumex. Continue Lanoxin, Coreg, and Zestril at present doses for now. (3) Hypertension Current Visit: No Status: Chronic Assessment and plan: July 27. Continue Coreg and Zestril at present doses. Qualifiers: Hypertension type: essential hypertension Qualified Code(s): I10 - Essential (primary) hypertension - Subjective Interval history: July 27. She was hospitalized in acute care July 21-July 26 after presenting with dyspnea to emergency room. She was initially treated for heart failure. Chest CT done the afternoon of July 22 showed bilateral infiltrates. She was started empirically on Rocephin and Zithromax with lactobacillus. She improved but it was felt she would benefit from swing bed stay for rehabilitation therapy prior to returning home. She has no new complaints today and states her breathing is slightly improved. - Constitutional Vitals: Temp Pulse Resp BP Pulse Ox 98.6 F 60 16 158/74 97 07/27/16 06:37 07/27/16 06:37 07/27/16 06:37 07/27/16 06:37 07/27/16 06:37 Exam: She is sitting in bed and appears to be resting comfortably. Her affect is bright and cheerful. She does not appear dyspneic. I reviewed her medications and lab results. Internal Medicine: Result - Labs CBC & Chem 7: 07/27/16 04:50 07/27/16 04:50 Labs: Short CBC 07/27/16 Range/Units 04:50 WBC 3.2 L (4.3-11.1) K/mcL Hgb 11.3 L (11.5-15.4) g/dL Hct 35.4 (35.3-44.9) % Plt Count 189 (140-400) K/mcL Neutrophils # 1.5 L (1.6-8.9) K/mcL BMP 07/27/16 04:50 Sodium 138 Potassium 4.1 Chloride 99 Carbon Dioxide 31 H BUN 11 Creatinine 0.74 Glucose 86 Calcium 8.7 - ABG Interpretation ABG results: PT/INR, D-dimer PT 12.0 Seconds (9.4-12.1) 07/27/16 04:50 - VTE Documentation of Mechanical Device: Graduated compression elastic hosiery Consult Discharge Plan - Plan Referrals: Levar Shelton DO [Primary Care Provider] - 1 week
[2016-07-28] MEDS: *HR* Digoxin 0.25 MG TABLET PO SCH (10:46)
[2016-07-28] MEDS: Aspirin Enteric Coated 81 MG Tablet PO SCH (10:47)
[2016-07-28] MEDS: Bumetanide 1 MG TABLET PO SCH (10:47)
[2016-07-28] MEDS: Multivit/Ca/Min/Fe/FA 1 TAB TABLET PO SCH (10:48)
[2016-07-28] MEDS: Isosorbide MONOnitrate (24 HR) 30 MG TAB.ER.24H PO SCH (10:48)
[2016-07-28] MEDS: Acetaminophen 325 MG TABLET PO PRN (16:35)
[2016-07-29] MEDS: Aspirin Enteric Coated 81 MG Tablet PO SCH (10:16)
[2016-07-29] MEDS: Isosorbide MONOnitrate (24 HR) 30 MG TAB.ER.24H PO SCH (10:16)
[2016-07-29] MEDS: Multivit/Ca/Min/Fe/FA 1 TAB TABLET PO SCH (10:16)
[2016-07-29] MEDS: Bumetanide 1 MG TABLET PO SCH (10:16)
[2016-07-29] MEDS: *HR* Digoxin 0.25 MG TABLET PO SCH (10:16)
--- NOTE | 2016-07-29 12:35 | Internal Med Progress Note ---
Date of Encounter: 07/29/16 Time of Encounter: 12:25 - Assessment and plan (1) Pneumonia Current Visit: No Status: Acute Assessment and plan: July 27. Serology has returned showing PCR of Human Metapneumovirus. We will discontinue antibiotics and lactobacillus and continue supportive care. Qualifiers: Pneumonia type: due to unspecified organism Laterality: bilateral Lung location: unspecified part of lung Qualified Code(s): J18.9 - Pneumonia, unspecified organism (2) Nonischemic cardiomyopathy Current Visit: No Status: Chronic Assessment and plan: July 27. Her bn peptide remains elevated at 2384. I will increase isosorbide and Bumex. Continue Lanoxin, Coreg, and Zestril at present doses for now. July 29. We will recheck labs in a.m. (3) Hypertension Current Visit: No Status: Chronic Assessment and plan: July 27. Continue Coreg and Zestril at present doses. July 29. Will increase Coreg. Continues Zestril at present dose Qualifiers: Hypertension type: essential hypertension Qualified Code(s): I10 - Essential (primary) hypertension - Subjective Interval history: July 27. She was hospitalized in acute care July 21-July 26 after presenting with dyspnea to emergency room. She was initially treated for heart failure. Chest CT done the afternoon of July 22 showed bilateral infiltrates. She was started empirically on Rocephin and Zithromax with lactobacillus. She improved but it was felt she would benefit from swing bed stay for rehabilitation therapy prior to returning home. She has no new complaints today and states her breathing is slightly improved. July 29. She has no new complaints and feels better - Constitutional Vitals: Temp Pulse Resp BP Pulse Ox 97.8 F 58 18 145/63 98 07/29/16 07:16 07/29/16 10:36 07/29/16 10:36 07/29/16 10:36 07/29/16 10:36 Exam: She is sitting on the side of the bed and appears in no acute distress. Her lungs are clear without wheezes or crackles. Heart is regular without murmurs gallops or ectopics. She is wearing MIGUEL hose there is no edema. I reviewed her medications and lab results. Internal Medicine: Result - Labs CBC & Chem 7: 07/27/16 04:50 07/27/16 04:50 - ABG Interpretation ABG results: PT/INR, D-dimer PT 12.0 Seconds (9.4-12.1) 07/27/16 04:50 - VTE Documentation of Mechanical Device: Graduated compression elastic hosiery Consult Discharge Plan - Plan Referrals: Levar Shelton DO [Primary Care Provider] - 1 week
[2016-07-30 06:01] LABS: Basophils % 0.8 %; Eosinophils # 0.2 K/mcL (0.0-0.6); Eosinophils % 4.6 %; Hematocrit 34.2 % (35.3-44.9); Hemoglobin 11.1 g/dL (11.5-15.4); Immature Granulocytes % 0.6 % (0-4); Lymphocytes # 1.2 K/mcL (0.6-4.6); Mean Corpuscular HGB Conc 32.5 g/dL (31.6-35.5); Mean Corpuscular Hemoglobin 29.4 pg (28.0-33.3); Mean Corpuscular Volume 90.5 fL (83.0-100.0); Mean Platelet Volume 9.4 fL (9.4-12.4); Monocytes # 0.5 K/mcL (0.0-1.3); Monocytes % 9.6 %; Neutrophils # 2.9 K/mcL (1.6-8.9); Platelet Count 256 K/mcL (140-400); Red Blood Count 3.78 M/mcL (3.82-4.97); Red Cell Distribution Width 13.9 % (11.5-14.5); Segmented Neutrophils % 60.4 %
[2016-07-30 06:19] LABS: BUN/Creatinine Ratio 19 (6-26); Blood Urea Nitrogen 14 mg/dL (7-20); Carbon Dioxide 33 mEq/L (19-29); Chloride 98 mEq/L (98-109); Glucose 86 mg/dL (70-99); Osmolality,Calculated 288 (280-300); Sodium 139 mEq/L (136-145); eGFR For African Americans > 60 (> 60); eGFR For Non-African Americans > 60 (> 60)
[2016-07-30] MEDS: Aspirin Enteric Coated 81 MG Tablet PO SCH (10:08)
[2016-07-30] MEDS: Bumetanide 1 MG TABLET PO SCH (10:08)
[2016-07-30] MEDS: Isosorbide MONOnitrate (24 HR) 60 MG TAB.ER.24H PO SCH (10:09)
[2016-07-30] MEDS: *HR* Digoxin 0.25 MG TABLET PO SCH (10:10)
[2016-07-30] MEDS: Multivit/Ca/Min/Fe/FA 1 TAB TABLET PO SCH (10:10)
--- NOTE | 2016-07-30 15:14 | Internal Med Progress Note ---
Date of Encounter: 07/30/16 Time of Encounter: 15:05 - Assessment and plan (1) Pneumonia Current Visit: No Status: Acute Assessment and plan: July 27. Serology has returned showing PCR of Human Metapneumovirus. We will discontinue antibiotics and lactobacillus and continue supportive care. Qualifiers: Pneumonia type: due to unspecified organism Laterality: bilateral Lung location: unspecified part of lung Qualified Code(s): J18.9 - Pneumonia, unspecified organism (2) Nonischemic cardiomyopathy Current Visit: No Status: Chronic Assessment and plan: July 27. Her bn peptide remains elevated at 2384. I will increase isosorbide and Bumex. Continue Lanoxin, Coreg, and Zestril at present doses for now. July 29. We will recheck labs in a.m. July 30. BN peptide is significantly improved at 1279. Continue present regimen (3) Hypertension Current Visit: No Status: Chronic Assessment and plan: July 27. Continue Coreg and Zestril at present doses. July 29. Will increase Coreg. Continues Zestril at present dose Qualifiers: Hypertension type: essential hypertension Qualified Code(s): I10 - Essential (primary) hypertension - Subjective Interval history: July 27. She was hospitalized in acute care July 21-July 26 after presenting with dyspnea to emergency room. She was initially treated for heart failure. Chest CT done the afternoon of July 22 showed bilateral infiltrates. She was started empirically on Rocephin and Zithromax with lactobacillus. She improved but it was felt she would benefit from swing bed stay for rehabilitation therapy prior to returning home. She has no new complaints today and states her breathing is slightly improved. July 29. She has no new complaints and feels better July 30. She has no new complaints and feels better - Constitutional Vitals: Temp Pulse Resp BP Pulse Ox 98.2 F 61 20 126/53 90 L 07/30/16 12:28 07/30/16 12:28 07/30/16 12:28 07/30/16 12:28 07/30/16 12:35 Exam: She is resting comfortably in bed and in no acute distress. Her affect is bright and cheerful. I reviewed her medications and lab results. Internal Medicine: Result - Labs CBC & Chem 7: 07/30/16 05:10 07/30/16 05:10 Labs: Short CBC 07/30/16 Range/Units 05:10 WBC 4.8 (4.3-11.1) K/mcL Hgb 11.1 L (11.5-15.4) g/dL Hct 34.2 L (35.3-44.9) % Plt Count 256 (140-400) K/mcL Neutrophils # 2.9 (1.6-8.9) K/mcL BMP 07/30/16 05:10 Sodium 139 Potassium 4.0 Chloride 98 Carbon Dioxide 33 H BUN 14 Creatinine 0.74 Glucose 86 Calcium 9.0 - ABG Interpretation ABG results: PT/INR, D-dimer PT 12.0 Seconds (9.4-12.1) 07/27/16 04:50 - VTE Documentation of Mechanical Device: Graduated compression elastic hosiery Consult Discharge Plan - Plan Referrals: Levar Shelton DO [Primary Care Provider] - 1 week
[2016-07-31] MEDS: Aspirin Enteric Coated 81 MG Tablet PO SCH (09:29)
[2016-07-31] MEDS: *HR* Digoxin 0.25 MG TABLET PO SCH (09:30)
[2016-07-31] MEDS: Bumetanide 1 MG TABLET PO SCH (09:30)
[2016-07-31] MEDS: Isosorbide MONOnitrate (24 HR) 60 MG TAB.ER.24H PO SCH (09:30)
[2016-07-31] MEDS: Multivit/Ca/Min/Fe/FA 1 TAB TABLET PO SCH (09:31)
[2016-08-01] MEDS: *HR* Digoxin 0.25 MG TABLET PO SCH (08:04)
[2016-08-01] MEDS: Bumetanide 1 MG TABLET PO SCH (08:04)
[2016-08-01] MEDS: Multivit/Ca/Min/Fe/FA 1 TAB TABLET PO SCH (08:05)
[2016-08-01] MEDS: Aspirin Enteric Coated 81 MG Tablet PO SCH (08:05)
[2016-08-01] MEDS: Isosorbide MONOnitrate (24 HR) 60 MG TAB.ER.24H PO SCH (08:14)
[2016-08-01] MEDS: Acetaminophen 325 MG TABLET PO PRN (20:02)
[2016-08-02 07:22] VITALS: BP 140/63
[2016-08-02] MEDS: Isosorbide MONOnitrate (24 HR) 60 MG TAB.ER.24H PO SCH (08:55)
[2016-08-02] MEDS: Aspirin Enteric Coated 81 MG Tablet PO SCH (08:55)
[2016-08-02] MEDS: *HR* Digoxin 0.25 MG TABLET PO SCH (08:55)
[2016-08-02] MEDS: Multivit/Ca/Min/Fe/FA 1 TAB TABLET PO SCH (08:55)
[2016-08-02] MEDS: Bumetanide 1 MG TABLET PO SCH (08:56)
--- NOTE | 2016-08-02 09:17 | Discharge Summary ---
Date of Encounter: 08/02/16 Time of Encounter: 09:00 - Discharge Diagnosis (1) Pneumonia Priority: Primary Status: Acute Qualifiers: Pneumonia type: due to unspecified organism Laterality: bilateral Lung location: unspecified part of lung Qualified Code(s): J18.9 - Pneumonia, unspecified organism (2) Nonischemic cardiomyopathy Priority: Secondary Status: Chronic (3) Hypertension Priority: Secondary Status: Chronic Qualifiers: Hypertension type: essential hypertension Qualified Code(s): I10 - Essential (primary) hypertension - Discharge Medications Prescriptions: Bumetanide [Bumex] 1.5 mg PO DAILY #45 tablet Carvedilol 12.5 mg PO BID #60 tab Digoxin [Lanoxin] 0.25 mg PO DAILY #30 tablet Isosorbide MONOnitrate (24 HR) [Imdur] 60 mg PO DAILY #30 tab.er.24h Lisinopril [Zestril] 10 mg PO DAILY #30 tablet Potassium Chloride 10 meq PO DAILY #30 tab.er.prt Home Medications: Aspirin [Adult Low Dose Aspirin EC] 81 mg PO DAILY 07/01/15 [History] Vit A/Vit C/Vit E/Zinc/Copper [Preservision Areds Tablet] 1 tab PO ACHS [History] Potassium Chloride 10 meq PO DAILY #30 tab.er.prt 10/24/15 [Rx] Calcium Carbonate [Calcium] 500 mg PO DAILY 03/14/16 [History] Acetaminophen [Tylenol] 650 mg PO Q4HR PRN #0 tablet 03/15/16 [Rx] Albuterol Neb [Proventil Neb] 2.5 mg IH Q2H PRN #0 inhsol 07/26/16 [Rx] Bumetanide [Bumex] 1.5 mg PO DAILY #45 tablet 08/02/16 [Rx] Carvedilol 12.5 mg PO BID #60 tab 08/02/16 [Rx] Digoxin [Lanoxin] 0.25 mg PO DAILY #30 tablet 08/02/16 [Rx] Isosorbide MONOnitrate (24 HR) [Imdur] 60 mg PO DAILY #30 tab.er.24h 08/02/16 [ Rx] Lisinopril [Zestril] 10 mg PO DAILY #30 tablet 08/02/16 [Rx] Potassium Chloride 10 meq PO DAILY #30 tab.er.prt 08/02/16 [Rx] Allergies/Adverse Reactions: Allergies No Known Allergies Allergy (Verified 07/21/16 11:47) Date of admission: 07/26/16 14:28 Primary care physician: Levar Shelton DO Consults: 07/26/16 14:49 Consult to Occupational Therapy [CONS] Routine Comment: Evaluate, PLan and Implement Plan of Care Consult to Physical Therapy [CONS] Routine Comment: Evaluate, Plan and implement Plan of Care Consult to Cooler Conveyor Loader [CONS] Routine Reason for SW Consult: Discharge Planning - Patient Status Disposition: Home, Self-Care Overall status at discharge: patient is progressing back to baseline - Discharge Instructions Follow Up With: Levar Shelton DO [Primary Care Provider] - 1 week - Diet and Activity Activity: resume usual activities as tolerated Diet: advance to your usual diet Hospital course: Ms. Parson is a 85 year old female who was hospitalized in acute care July 21-July 26 after presenting with dyspnea to emergency room. She was initially treated for heart failure. Chest CT done the afternoon of July 22 showed bilateral infiltrates. She was started empirically on Rocephin and Zithromax with lactobacillus. She improved but it was felt she would benefit from swing bed stay for rehabilitation therapy prior to returning home. She continued to receive physical therapy and occupational therapy in swing bed. He progressed well and was able to return to her baseline level of function at time of discharge. Serology returned showing PCR evidence of Human Matapneumovirus. Antibiotics and lactobacillus were discontinued and she progressed well. Her medications for heart failure were adjusted and bn peptide improved to 1279 on July 30. Her dyspnea resolved. Her Lanoxin level was therapeutic on July 30 at 1.0. On August 02 arrangements were completed for to be discharged home. She will follow with Dr. Shelton within 1 week. Room air oximetry will be checked prior to discharge. - Time Spent with Patient Total time spent providing and/or coordinating discharge services: - Constitutional Vitals: Temp Pulse Resp BP Pulse Ox 98.1 F 60 20 140/63 91 L 08/02/16 07:21 08/02/16 07:21 08/02/16 07:21 08/02/16 07:21 08/02/16 07:21 - VTE Documentation of Mechanical Device: Graduated compression elastic hosiery
== END 2016-08-02 10:30 | disposition home or self-care (01) | DRG 945 ==
LOC: INPPIK 14:28
PROVIDERS: ADMIT Internal Medicine; ATTEND Internal Medicine

== ENCOUNTER 2017-11-17 15:52 | Observation (INO) ==
[2017-11-17] MEDS ORDERED: Aspirin 81 MG TAB.CHEW PO ONE (17:41)
--- NOTE | 2017-11-17 17:41 | Emergency Department Note ---
Disposition Clinical Impression: Pneumonia Qualifiers: Pneumonia type: due to unspecified organism Laterality: bilateral Lung location : lower lobe of lung Qualified Code(s): J18.1 - Lobar pneumonia, unspecified organism CHF (congestive heart failure) Qualifiers: Heart failure type: other Qualified Code(s): I50.9 - Heart failure, unspecified Chest pain Qualifiers: Chest pain type: other chest pain Qualified Code(s): R07.89 - Other chest pain ; R07.8 - Other chest pain Disposition: Admitted As Inpatient Condition: Good Instructions: Community-acquired Pneumonia (ED) Referrals: Levar Shelton DO [Primary Care Provider] - Forms: ED Satisfaction Letter, Work/School Release Time of Disposition: 19:45 SOB HPI - General Chief Complaint: ED General Medical Stated Complaint: shortness of breath Source: patient Limitations: no limitations - History of Present Illness Patient is a pleasant 87-year-old with past medical history significant for congestive heart failure, pacemaker and defibrillator who is presenting with acute onset of shortness of breath in the past 2 days along with intermittent chest pain. Patient states that when she had exacerbation of her CHF he did not have fluid overload or swelling of her lower extremities. She take Bumex for her diuresis. She stated that she was complaining of chest cold in the past few days. She states that the shortness of breath all the time and associated with clear cough no productive phlegm. She denies any fever or chills. She denies any nausea vomiting or diarrhea. She denies any racing heart. She denies any weakness or dizziness or visual symptoms she has no urinary symptoms. Review of other symptoms is otherwise negative except above - Related Data Home Medications Medication Instructions Recorded Confirmed Aspirin [Adult Low Dose Aspirin EC] 81 mg PO DAILY 07/01/15 11/17/17 Atorvastatin [Lipitor] 20 mg PO HS 10/19/16 11/17/17 Potassium Chloride 10 meq PO DAILY 10/19/16 11/17/17 Multivitamin [One Daily Essential] 1 each PO DAILY 04/05/17 11/17/17 amLODIPine [Norvasc] 5 mg PO DAILY 04/05/17 11/17/17 Vit C/E/Zn/Coppr/Lutein/Zeaxan 11/17/17 11/17/17 [Preservision Areds 2 Softgel] Previous Rx's Medication Instructions Recorded Acetaminophen [Tylenol] 650 mg PO Q4HR PRN #0 tablet 03/15/16 Bumetanide [Bumex] 1.5 mg PO DAILY #45 tablet 08/02/16 Carvedilol 12.5 mg PO BID #60 tab 08/02/16 Allergies Allergy/AdvReac Type Severity Reaction Status Date / Time No Known Allergies Allergy Verified 04/05/17 17:26 All systems ED: reviewed and negative except as stated. Review of Systems: As Per HPI Past Medical History - Past Medical History Medical history: Reports: arthritis, CHF, hypertension, thyroid disease Surgical history: Reports: no surgical history, cataract, AICD, pacemaker Psychiatric history: Reports: no psych history GLASS SANDER history: Reports: spontaneous , bilateral tubal ligation - Social History Smoking Status: Former smoker Smokeless Tobacco Status: No Alcohol use: Reports: occasionally Drug use: Reports: none Physical Exam - General Limitations: no limitations General appearance: alert, in no apparent distress - Head Head exam: atraumatic, normocephalic - Eye Eye exam: Present: normal appearance, PERRL, EOMI - Expanded Eye Exam Pupils: Left: reactive - ENT ENT exam: normal exam, normal oropharynx, mucous membranes moist - Expanded ENT Exam External ear exam: Present: normal external inspection Mouth exam: Present: normal external inspection Teeth exam: Present: normal inspection Throat exam: Present: normal inspection - Neck Neck exam: Present: normal inspection, full ROM, trachea midline - Chest Chest inspection: Present: normal inspection, symmetric chest wall rise - Respiratory Respiratory exam: Present: normal lung sounds bilaterally, wheezes, other ( Scattered rhonchi and wheezes in the base) - Cardiovascular Cardiovascular exam: Present: regular rate, normal rhythm, normal heart sounds - Abdominal Exam Abdominal exam: Present: soft, Non-Tender. Absent: tenderness, distention, guarding, rebound, rigidity - Extremities Exam Extremities exam: Present: normal inspection, full ROM. Absent: tenderness, pedal edema - Expanded Upper Extremity Exam Shoulder exam: Present: normal inspection, full ROM Arm exam: Present: normal inspection, full ROM Elbow exam: Present: normal inspection, full ROM Forearm/Wrist exam: Present: normal inspection, full ROM Hand exam: Present: normal inspection, full ROM Vascular exam: Normal: capillary refill, radial pulse - Expanded Lower Extremity Exam Hip/Pelvis exam: Present: normal inspection, full ROM Upper leg exam: Present: normal inspection, full ROM Knee exam: Present: normal inspection, full ROM Lower leg exam: Present: normal inspection, full ROM Ankle exam: Present: normal inspection, full ROM Foot/toe exam: Present: normal inspection, full ROM Neurovascular/Tendon exam: Absent: motor deficit, sensory deficit, tendon deficit - Back Exam Back exam: Present: normal inspection, full ROM. Absent: tenderness - Neurological Exam Neurological exam: Present: alert, oriented X3 - Expanded Neurological Exam Patient oriented to: Present: person, place, time Coma Scale Eye Opening: Spontaneous Coma Scale Motor Response: Obeys Commands Coma Scale Verbal Response: Oriented Coma Scale Total: 15 - Psychiatric Psychiatric exam: Present: normal affect, normal mood - Skin Skin exam: Present: warm, dry, intact, normal color Course Vital Signs Temperature 98.5 F 11/17/17 15:54 Pulse Rate 70 11/17/17 15:54 Respiratory Rate 18 11/17/17 15:54 Blood Pressure 123/69 11/17/17 15:54 O2 Sat by Pulse Oximetry 92 11/17/17 15:54 Temperature 98.5 F 11/17/17 15:54 Pulse Rate 62 11/17/17 19:45 Respiratory Rate 16 11/17/17 19:45 Blood Pressure 136/76 11/17/17 19:45 O2 Sat by Pulse Oximetry 95 11/17/17 19:45 Oxygen Delivery Oxygen Delivery Room Air Shortness of Breath/Dyspnea - Differential Diagnosis Likely: acute exacerbation of chronic obstructive airways disease, congestive heart failure, pneumonia, pneumothorax - Medical Records Medical records reviewed: Yes I reviewed the patient's medical records. - Lab Data Lab results reviewed: Yes I reviewed the patient's lab results. Result diagrams: 11/17/17 18:32 11/17/17 18:32 Lab Results 11/17/17 11/17/17 11/17/17 Range/Units 18:32 18:32 18:32 WBC 4.5 (4.3-11.1) K/mcL RBC 4.31 (3.82-4.97) M/mcL Hgb 13.9 (11.5-15.4) g/dL Hct 41.8 (35.3-44.9) % MCV 97.0 (83.0-100.0) fL MCH 32.3 (28.0-33.3) pg MCHC 33.3 (31.6-35.5) g/dL RDW 14.1 (11.5-14.5) % Plt Count 165 (140-400) K/mcL MPV 9.3 L (9.4-12.4) fL Immature Gran % 0.2 (0-4) % Seg Neutrophils % 45.5 % Lymphocytes % 34.4 % Monocytes % 13.7 % Eosinophils % 5.5 % Basophils % 0.7 % Neutrophils # 2.1 (1.6-8.9) K/mcL Lymphocytes # 1.6 (0.6-4.6) K/mcL Monocytes # 0.6 (0.0-1.3) K/mcL Eosinophils # 0.3 (0.0-0.6) K/mcL Basophils # 0.0 (0.0-0.2) K/mcL Platelet Estimate Normal (Normal) Hypochromasia Present A (Not Present) Anisocytosis 1+ A (Not Present) PT 11.1 (9.4-12.1) Seconds INR 1.0 APTT 34.0 (26.0-36.0) Seconds Sodium (136-145) mEq/L Potassium (3.5-5.1) mEq/L Chloride (98-107) mEq/L Carbon Dioxide (23-29) mEq/L BUN (8-23) mg/dL Creatinine (0.60-1.20) mg/dL Est GFR ( Amer) (> 60) Est GFR (Non-Af Amer) (> 60) BUN/Creatinine Ratio (6-26) Glucose (70-105) mg/dL Calculated Osmolality (280-300) Calcium (8.6-10.3) mg/dL Troponin I (< 0.04) ng/mL B-Natriuretic Peptide 752 H (Less than 100) pg/mL 11/17/17 Range/Units 18:32 WBC (4.3-11.1) K/mcL RBC (3.82-4.97) M/mcL Hgb (11.5-15.4) g/dL Hct (35.3-44.9) % MCV (83.0-100.0) fL MCH (28.0-33.3) pg MCHC (31.6-35.5) g/dL RDW (11.5-14.5) % Plt Count (140-400) K/mcL MPV (9.4-12.4) fL Immature Gran % (0-4) % Seg Neutrophils % % Lymphocytes % % Monocytes % % Eosinophils % % Basophils % % Neutrophils # (1.6-8.9) K/mcL Lymphocytes # (0.6-4.6) K/mcL Monocytes # (0.0-1.3) K/mcL Eosinophils # (0.0-0.6) K/mcL Basophils # (0.0-0.2) K/mcL Platelet Estimate (Normal) Hypochromasia (Not Present) Anisocytosis (Not Present) PT (9.4-12.1) Seconds INR APTT (26.0-36.0) Seconds Sodium 134 L (136-145) mEq/L Potassium 4.0 (3.5-5.1) mEq/L Chloride 99 (98-107) mEq/L Carbon Dioxide 29 (23-29) mEq/L BUN 24 H (8-23) mg/dL Creatinine 1.18 (0.60-1.20) mg/dL Est GFR ( Amer) 53 L (> 60) Est GFR (Non-Af Amer) 44 L (> 60) BUN/Creatinine Ratio 20 (6-26) Glucose 80 (70-105) mg/dL Calculated Osmolality 281 (280-300) Calcium 9.3 (8.6-10.3) mg/dL Troponin I < 0.03 (< 0.04) ng/mL B-Natriuretic Peptide (Less than 100) pg/mL - Radiology Data Radiology results reviewed: Yes I reviewed the patient's radiology results.
[2017-11-17 18:40] LABS: Basophils % 0.7 %; Eosinophils # 0.3 K/mcL (0.0-0.6); Eosinophils % 5.5 %; Hematocrit 41.8 % (35.3-44.9); Hemoglobin 13.9 g/dL (11.5-15.4); Immature Granulocytes % 0.2 % (0-4); Lymphocytes # 1.6 K/mcL (0.6-4.6); Lymphocytes % 34.4 %; Mean Corpuscular HGB Conc 33.3 g/dL (31.6-35.5); Mean Corpuscular Hemoglobin 32.3 pg (28.0-33.3); Mean Platelet Volume 9.3 fL (9.4-12.4); Monocytes # 0.6 K/mcL (0.0-1.3); Monocytes % 13.7 %; Neutrophils # 2.1 K/mcL (1.6-8.9); Platelet Count 165 K/mcL (140-400); Red Blood Count 4.31 M/mcL (3.82-4.97); Red Cell Distribution Width 14.1 % (11.5-14.5); Segmented Neutrophils % 45.5 %
[2017-11-17 18:49] LABS: Troponin I < 0.03 ng/mL (< 0.04)
[2017-11-17 18:53] LABS: Prothrombin Time 11.1 Seconds (9.4-12.1)
[2017-11-17 19:03] LABS: BUN/Creatinine Ratio 20 (6-26); Blood Urea Nitrogen 24 mg/dL (8-23); Calcium 9.3 mg/dL (8.6-10.3); Carbon Dioxide 29 mEq/L (23-29); Chloride 99 mEq/L (98-107); Glucose 80 mg/dL (70-105); Osmolality,Calculated 281 (280-300); Sodium 134 mEq/L (136-145); eGFR For African Americans 53 (> 60); eGFR For Non-African Americans 44 (> 60)
[2017-11-17 19:10] LABS: Anisocytosis 1+ (Not Present); Hypochromasia Present (Not Present)
[2017-11-17 19:11] LABS: Platelet Estimate Normal (Normal)
[2017-11-17] MEDS ORDERED: Furosemide 40 MG/4 ML VIAL IVP ONE (19:45)
[2017-11-17] MEDS ORDERED: CefTRIAXone 1,000 MG VIAL IM ONE (20:32)
[2017-11-17] MEDS ORDERED: Naloxone 0.4 MG/ML INJ IVP PRN ×2 (20:40→23:23)
[2017-11-17] MEDS ORDERED: Acetaminophen 325 MG TABLET PO PRN (23:22)
[2017-11-18 06:44] LABS: Prothrombin Time 11.2 Seconds (9.4-12.1)
[2017-11-18 06:46] LABS: Activated Partial Thrombo Time 31.5 Seconds (26.0-36.0)
[2017-11-18] MEDS: Aspirin Enteric Coated 81 MG Tablet PO SCH (07:59)
[2017-11-18] MEDS ORDERED: cefTRIAXone 1,000 MG in Water for inj. (sterile) 20 ML 10 ML IVP SCH ×2 (09:00→20:00)
[2017-11-18] MEDS ORDERED: amLODIPine 5 MG TABLET PO SCH (09:00)
--- NOTE | 2017-11-18 12:01 | Internal Med History&Physical ---
Date of Encounter: 11/18/17 Time of Encounter: 11:25 Assessment and Plan (1) CHF (congestive heart failure) Current visit: Yes Status: Acute Likely acute exacerbation with underlying chronic failure. She will be started on ARB and Lanoxin. Bumex dose will be slightly decreased to see of azotemia improves. Qualifiers: Heart failure type: other Qualified Code(s): I50.9 - Heart failure, unspecified (2) Azotemia Current visit: Yes Status: Acute Intermittently present since September 2015 labs. Will decrease Bumex and monitor renal indices. (3) Hypertension Current visit: No Status: Chronic Will hold Norvasc and use ARB with Coreg for blood pressure and heart failure. Qualifiers: Hypertension type: essential hypertension Qualified Code(s): I10 - Essential (primary) hypertension (4) Nonischemic cardiomyopathy Current visit: No Status: Chronic As above Internal Medicine - H&P: HPI Chief complaint: Dyspnea Admitted From: Emergency Dept Plans for Post Hospital Care: Home History of present illness: Ms. Parson is a 87 year old female came to emergency room stating she had increased dyspnea over the preceding 48 hours. She had no chest pain or significant cough. She was evaluated in emergency room felt to have exacerbation of heart failure. Chest x-ray showed possible infiltrate. She was admitted to [facility] floor for ongoing care needs. Her cardiac history is significant for hypertension but no known TX DVT or pulmonary embolus. She had a heart cath done 10/27/2015 which showed nonobstructive CAD but LVEF of 30 %. She was diagnosed with nonischemic cardiopathy. An AICD was placed February 2016. She had an echocardiogram done which showed LVEF of 30-35% with severe LV systolic dysfunction and atypical septal motion. There was mild diastolic dysfunction seen. There was moderate to severe mitral regurgitation and moderate TR with mild pulmonary regurgitation. The RVSP estimate was elevated at 59 mmHg. A small circumferential pericardial effusion was seen without evidence of tamponade. Past Med Surg Social Fam HX - Past Medical History Medical history: arthritis, CHF, hypertension, thyroid disease Additional medical history: Macular degeneration Psychiatric history: no psych history - Past Surgical History Surgical History: no surgical history, cataract, AICD, pacemaker Additional surgical history: Tonsillectomy, Tubes tied, Colonoscopy - Social History Smoking Status: Former smoker Smokeless Tobacco Status: No Alcohol use: occasionally Drug use: none - Family History Mother Hx Family Cardiac Disorders: Yes Father Hx Family Cardiac Disorders: Yes Internal Medicine - H&P: Meds Aspirin [Adult Low Dose Aspirin EC] 81 mg PO DAILY 07/01/15 [History] Acetaminophen [Tylenol] 650 mg PO Q4HR PRN #0 tablet 03/15/16 [Rx] Bumetanide [Bumex] 1.5 mg PO DAILY #45 tablet 08/02/16 [Rx] Carvedilol 12.5 mg PO BID #60 tab 08/02/16 [Rx] Atorvastatin [Lipitor] 20 mg PO HS 10/19/16 [History] Potassium Chloride 10 meq PO DAILY 10/19/16 [History] Multivitamin [One Daily Essential] 1 each PO DAILY 04/05/17 [History] amLODIPine [Norvasc] 5 mg PO DAILY 04/05/17 [History] Vit C/E/Zn/Coppr/Lutein/Zeaxan [Preservision Areds 2 Softgel] 11/17/17 [History ] 3 Allergy/AdvReac Type Severity Reaction Status Date / Time No Known Allergies Allergy Verified 04/05/17 17:26 All Systems PM: A 10-system review of systems was performed and is negative for pertinent findings except as documented above in the HPI. Review of systems: Review of systems from her June 2016 [facility] hospitalization were reviewed and revised as below. Gen.: Her weight has decreased from 55.338 kg on 07/21/2016 to 53.524 kg now Cardiovascular: As per history of present illness Respiratory: She smoked from age [age] up to 2 packs per day. She does not wear home oxygen and denies chronic lung disease. GI: She denies disorders of her liver gallbladder or exocrine pancreas. She states she had colonoscopy in 2012 which was negative. : She denies hematuria dysuria or kidney stones Neurologic: She denies large distribution strokes or seizures Endocrine: She had hyperthyroid condition treated with radioactive iodine several years ago. TSH 10/22/2015 was normal at 1.507. She denies diabetes or hyperlipidemia Hematology/oncology: She denies blood disorders cancers or anemia Psychiatric: She denies anxiety depression or other mental health issues Musk skeletal: She has DJD but no known gout or osteoporosis. - Constitutional Vitals: Temp Pulse Resp BP Pulse Ox 98 F 74 18 139/70 94 11/18/17 10:00 11/18/17 10:00 11/18/17 10:00 11/18/17 10:00 11/18/17 10:00 Exam: Gen.: She is a well developed well-nourished female resting comfortably in bed who appears in no severe distress HEENT: Head is atraumatic and normocephalic. Eyes: EOMI. There is no scleral icterus. Mouth: Mucosa is moist. Neck: Supple and nontender. There is no thyromegaly or adenopathy noted. Heart: Regular without murmurs gallops or ectopics Lungs: No wheezes or crackles are heard. Abdomen: Soft and nontender. No masses or guarding are noted. Extremities: There is no cyanosis edema or clubbing noted. Dorsalis pedis and posttibial pulses are trace to 1+ palpable bilaterally. She has DJD changes of her hands. Neurologic: Mental status: She is talkative and a good historian. Cranial nerves: Smile is symmetric. Forehead wrinkles bilaterally. Tongue protrudes midline. EOMI. Motor: There is no pronator drift. Cerebellar: Finger to nose is intact bilaterally. Skin: Warm and dry Internal Med - H&P Results - Labs CBC & Chem 7: 11/17/17 18:32 11/17/17 18:32 Labs: Cardiac Enzymes 11/18/17 11/18/17 Range/Units 00:33 06:30 Troponin I < 0.03 < 0.03 (< 0.04) ng/mL
[2017-11-18] MEDS: *HR* Digoxin 0.125 MG TABLET PO SCH (14:09)
[2017-11-18] MEDS: Bumetanide 1 MG TABLET PO SCH (14:09)
--- NOTE | 2017-11-18 16:19 | Electrocardiograph Report ---
[address] [address] Test Date: 2017-11-18 Pat Name: Lesly Parson Department: 9202 Room: [facility] Gender: F Personal Companion: [id number] : 1930 Requested By: Beatriz Garza Order Number: [id number] Reading MD: Susanne Mendoza Measurements Intervals [place] Rate: 60 P: 98 NM: 149 QRS: 87 QRSD: 165 T: -60 QT: 491 QTc: 491 Interpretive Statements ELECTRONIC ATRIAL PACEMAKER ELECTRONIC VENTRICULAR PACEMAKER ABNORMAL RHYTHM ECG Electronically Signed On 11-18-2017 16:18:23 EDT by Susanne Mendoza
--- NOTE | 2017-11-18 16:23 | Electrocardiograph Report ---
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
[2017-11-19 05:00] LABS: Basophils % 0.8 %; Eosinophils # 0.3 K/mcL (0.0-0.6); Eosinophils % 7.8 %; Hematocrit 39.6 % (35.3-44.9); Hemoglobin 13.1 g/dL (11.5-15.4); Immature Granulocytes % 0.5 % (0-4); Lymphocytes # 1.6 K/mcL (0.6-4.6); Lymphocytes % 41.8 %; Mean Corpuscular HGB Conc 33.1 g/dL (31.6-35.5); Mean Corpuscular Hemoglobin 31.7 pg (28.0-33.3); Mean Corpuscular Volume 95.9 fL (83.0-100.0); Mean Platelet Volume 9.5 fL (9.4-12.4); Monocytes # 0.4 K/mcL (0.0-1.3); Monocytes % 11.6 %; Neutrophils # 1.4 K/mcL (1.6-8.9); Platelet Count 149 K/mcL (140-400); Red Blood Count 4.13 M/mcL (3.82-4.97); Red Cell Distribution Width 14.2 % (11.5-14.5); Segmented Neutrophils % 37.5 %
[2017-11-19 05:23] LABS: BUN/Creatinine Ratio 35 (6-26); Blood Urea Nitrogen 24 mg/dL (8-23); Calcium 9.4 mg/dL (8.6-10.3); Carbon Dioxide 28 mEq/L (23-29); Chloride 102 mEq/L (98-107); Glucose 101 mg/dL (70-105); Osmolality,Calculated 288 (280-300); Potassium 3.6 mEq/L (3.5-5.1); Sodium 137 mEq/L (136-145); eGFR For African Americans > 60 (> 60); eGFR For Non-African Americans > 60 (> 60)
[2017-11-19 05:36] LABS: Thyroid Stimulating Hormone 1.647 mcIU/mL (0.340-5.600)
[2017-11-19 07:04] LABS: Reactive Lymphocytes Present (Not Present)
[2017-11-19] MEDS: Bumetanide 1 MG TABLET PO SCH (09:14)
[2017-11-19] MEDS: Aspirin Enteric Coated 81 MG Tablet PO SCH (09:14)
[2017-11-19] MEDS: *HR* Digoxin 0.125 MG TABLET PO SCH (09:16)
[2017-11-19 10:27] VITALS: BP 163/68
--- NOTE | 2017-11-19 10:28 | Discharge Summary ---
Date of Encounter: 11/19/17 Time of Encounter: 10:15 - Discharge Diagnosis (1) CHF (congestive heart failure) Priority: Primary Status: Acute Qualifiers: Heart failure type: other Qualified Code(s): I50.9 - Heart failure, unspecified (2) Azotemia Priority: Secondary Status: Resolved (3) Hypertension Priority: Secondary Status: Chronic Qualifiers: Hypertension type: essential hypertension Qualified Code(s): I10 - Essential (primary) hypertension (4) Nonischemic cardiomyopathy Priority: Secondary Status: Chronic Hospital course: Ms. Parson is a 87 year old female who came to emergency room stating she had increased dyspnea over the preceding 48 hours. She had no chest pain or significant cough. She was evaluated in emergency room felt to have exacerbation of heart failure. Chest x-ray showed possible infiltrate. She was admitted to [facility] for ongoing care needs. Initial orders were written by the emergency room physician. I saw her on November 18 and performed a history and physical. Bumex dose was reduced to lessen azotemia. She was started on Lanoxin and low-dose Cozaar. Amlodipine was discontinued. She had significant clinical improvement with bn peptide decreasing to 248 by day of discharge. Her dyspnea resolved. Creatinine decreased to 0.69 by day of discharge. She will remain on this regimen at discharge. She reported several episodes of feeling a "thumping" sensation in her abdomen. She attributed this to her defibrillator. I told her she should discuss this with her engineer of system development Dr. Valle. On November 19 she felt stable for discharge home. She will follow with her PCP Dr. Shelton within 1 week. - Time Spent with Patient Total time spent providing and/or coordinating discharge services: - Discharge Medications Prescriptions: Digoxin [Lanoxin] 0.125 mg PO DAILY #30 tablet Losartan [Cozaar] 25 mg PO DAILY #30 tablet Home Medications: Aspirin [Adult Low Dose Aspirin EC] 81 mg PO DAILY 07/01/15 [History] Acetaminophen [Tylenol] 650 mg PO Q4HR PRN #0 tablet 03/15/16 [Rx] Carvedilol 12.5 mg PO BID #60 tab 08/02/16 [Rx] Atorvastatin [Lipitor] 20 mg PO HS 10/19/16 [History] Potassium Chloride 10 meq PO DAILY 10/19/16 [History] Multivitamin [One Daily Essential] 1 each PO DAILY 04/05/17 [History] Vit C/E/Zn/Coppr/Lutein/Zeaxan [Preservision Areds 2 Softgel] 11/17/17 [History ] Bumetanide [Bumex] 1 mg PO DAILY #45 tablet 11/19/17 [Rx] Digoxin [Lanoxin] 0.125 mg PO DAILY #30 tablet 11/19/17 [Rx] Losartan [Cozaar] 25 mg PO DAILY #30 tablet 11/19/17 [Rx] Allergies/Adverse Reactions: 3 Allergy/AdvReac Type Severity Reaction Status Date / Time No Known Allergies Allergy Verified 04/05/17 17:26 Date of admission: 11/17/17 22:10 Primary care physician: Levar Shelton DO - Constitutional Vitals: Temp Pulse Resp BP Pulse Ox 98.4 F 62 16 132/76 94 11/19/17 06:00 11/19/17 06:00 11/19/17 06:00 11/19/17 06:00 11/19/17 06:00 - Patient Status Disposition: Home, Self-Care Condition: Good Functional capacity at discharge: uses cane/walker Overall status at discharge: patient is progressing back to baseline - Discharge Instructions Follow Up With: Levar Shelton DO [Primary Care Provider] - 1 week - Diet and Activity Activity: resume usual activities as tolerated Diet: advance to your usual diet
[2017-11-23] MEDS ORDERED: CefTRIAXone 1,000 MG VIAL IM ONE (20:21)
== END 2017-11-19 11:10 | disposition home or self-care (01) ==
LOC: EMEROOPIK 15:52 → INPPIK 15:52
PROVIDERS: ADMIT Internal Medicine; ATTEND Internal Medicine

== ENCOUNTER 2021-11-28 13:18 | Inpatient (IN) ==
[2021-11-28 14:08] LABS: Basophils % 0.4 %; Eosinophils % 0.5 %; Hematocrit 35.2 % (35.3-44.9); Hemoglobin 11.4 g/dL (11.5-15.4); Immature Granulocytes % 0.4 % (0-4); Lymphocytes # 0.9 K/mcL (0.6-4.6); Lymphocytes % 11.1 %; Mean Corpuscular HGB Conc 32.4 g/dL (31.6-35.5); Mean Corpuscular Hemoglobin 31.1 pg (28.0-33.3); Mean Corpuscular Volume 96.2 fL (83.0-100.0); Mean Platelet Volume 9.4 fL (9.4-12.4); Monocytes # 1.1 K/mcL (0.0-1.3); Monocytes % 13.6 %; Neutrophils # 5.7 K/mcL (1.6-8.9); Platelet Count 269 K/mcL (140-400); Red Blood Count 3.66 M/mcL (3.82-4.97); Red Cell Distribution Width 12.6 % (11.5-14.5); White Blood Count 7.7 K/mcL (4.3-11.1)
[2021-11-28 14:15] LABS: INR 1.3; Prothrombin Time 14.2 Seconds (9.4-12.1)
[2021-11-28 14:22] LABS: BUN/Creatinine Ratio 25 (6-26); Blood Urea Nitrogen 22 mg/dL (8-23); Calcium 9.4 mg/dL (8.6-10.3); Carbon Dioxide 29 mEq/L (23-29); Chloride 101 mEq/L (98-107); Glucose 121 mg/dL (70-105); Osmolality,Calculated 291 (280-300); Potassium 3.9 mEq/L (3.5-5.1); Sodium 138 mEq/L (136-145); eGFR For African Americans > 60 (> 60); eGFR For Non-African Americans 60 (> 60)
[2021-11-28 14:27] LABS: Troponin I 0.03 ng/mL (< 0.04)
[2021-11-28] MEDS ORDERED: cefTRIAXone 1,000 MG in 0.9 % Sodium Chloride 10 ML IVP ONE (15:11)
[2021-11-28] MEDS ORDERED: Doxycycline 100 MG in 0.9 % Sodium Chloride Mini Bag 100 ML IVPB ONE (15:12)
[2021-11-28] MEDS ORDERED: Naloxone 0.4 MG/ML INJ IVP PRN (15:55)
[2021-11-28] MEDS ORDERED: Ondansetron 4 MG/2 ML VIAL IVP PRN (15:55)
[2021-11-28] MEDS ORDERED: Acetaminophen 325 MG TABLET PO PRN (15:55)
[2021-11-28] MEDS ORDERED: Perflutren Lipid Microsphere 1.3 ML in 0.9 % Sodium Chloride 8.7 ML IVP PRN (15:58)
[2021-11-28] MEDS ORDERED: Sennosides/Docusate Sodium TABLET PO PRN (16:30)
[2021-11-28] MEDS: carvediloL 25 MG TABLET PO SCH (18:05)
[2021-11-28] MEDS: Furosemide 20 MG/2 ML VIAL IVP SCH (20:53)
[2021-11-29 02:21] LABS: Bilirubin,Urine Negative (Negative); Blood,Urine Negative (Negative); Clarity,Urine Clear (Clear); Color,Urine Yellow (Yellow); Glucose,Urine (UA) Normal (Normal); Ketones,Urine Negative (Negative); Leukocyte Esterase,Urine Negative (Negative); Nitrite,Urine Negative (Negative); PH,Urine 5.5 pH Units (5.0-8.0); Protein,Urine Negative (Neg-Trace); Urobilinogen,Urine Normal (Normal)
[2021-11-29] MEDS: *HR* Enoxaparin 40 MG/0.4 ML SYRINGE SQ SCH (05:54)
[2021-11-29 07:12] LABS: Hematocrit 33.4 % (35.3-44.9); Hemoglobin 10.8 g/dL (11.5-15.4); Mean Corpuscular HGB Conc 32.3 g/dL (31.6-35.5); Mean Corpuscular Hemoglobin 31.3 pg (28.0-33.3); Mean Corpuscular Volume 96.8 fL (83.0-100.0); Platelet Count 264 K/mcL (140-400); Red Blood Count 3.45 M/mcL (3.82-4.97); Red Cell Distribution Width 12.7 % (11.5-14.5); White Blood Count 7.8 K/mcL (4.3-11.1)
[2021-11-29 07:31] LABS: BUN/Creatinine Ratio 24 (6-26); Blood Urea Nitrogen 17 mg/dL (8-23); Carbon Dioxide 29 mEq/L (23-29); Chloride 101 mEq/L (98-107); Glucose 94 mg/dL (70-105); Magnesium 1.9 mg/dL (1.6-2.6); Osmolality,Calculated 287 (280-300); Potassium 3.3 mEq/L (3.5-5.1); Sodium 138 mEq/L (136-145); eGFR For African Americans > 60 (> 60); eGFR For Non-African Americans > 60 (> 60)
[2021-11-29] MEDS ORDERED: Ipratropium/Albuterol Neb 3 ML IH PRN (07:46)
[2021-11-29] MEDS: Doxycycline 100 MG in 0.9 % Sodium Chloride Mini Bag 100 ML IVPB SCH ×2 (09:22→21:17)
[2021-11-29] MEDS: Aspirin Enteric Coated 81 MG Tablet PO SCH (09:23)
[2021-11-29] MEDS: Multivit/Ca/Min/Fe/FA 1 TAB TABLET PO SCH (09:23)
[2021-11-29] MEDS: cefTRIAXone 2,000 MG in 0.9 % Sodium Chloride Mini Bag 100 ML IVPB SCH (09:23)
[2021-11-29] MEDS: *HR* Digoxin 0.125 MG TABLET PO SCH (09:23)
[2021-11-29] MEDS: amLODIPine 5 MG TABLET PO SCH (09:24)
[2021-11-29] MEDS: Furosemide 20 MG/2 ML VIAL IVP SCH ×2 (09:24→21:14)
[2021-11-29] MEDS: carvediloL 25 MG TABLET PO SCH ×2 (09:24→17:26)
[2021-11-29] MEDS: [UNRECOGNIZED DRUG - OTHER] PO SCH (18:02)
[2021-11-30] MEDS: *HR* Enoxaparin 40 MG/0.4 ML SYRINGE SQ SCH (05:50)
[2021-11-30 06:36] LABS: Hematocrit 36.2 % (35.3-44.9); Hemoglobin 11.7 g/dL (11.5-15.4); Mean Corpuscular HGB Conc 32.3 g/dL (31.6-35.5); Mean Platelet Volume 10.9 fL (9.4-12.4); Platelet Count 255 K/mcL (140-400); Red Blood Count 3.77 M/mcL (3.82-4.97); Red Cell Distribution Width 12.8 % (11.5-14.5); White Blood Count 7.2 K/mcL (4.3-11.1)
[2021-11-30 07:19] LABS: BUN/Creatinine Ratio 20 (6-26); Blood Urea Nitrogen 14 mg/dL (8-23); Carbon Dioxide 24 mEq/L (23-29); Chloride 101 mEq/L (98-107); Potassium 4.1 mEq/L (3.5-5.1); Sodium 138 mEq/L (136-145); eGFR For African Americans > 60 (> 60); eGFR For Non-African Americans > 60 (> 60)
[2021-11-30 07:20] LABS: Glucose 81 mg/dL (70-105); Magnesium 1.9 mg/dL (1.6-2.6); Osmolality,Calculated 286 (280-300)
[2021-11-30] MEDS: Aspirin Enteric Coated 81 MG Tablet PO SCH (08:59)
[2021-11-30] MEDS: *HR* Digoxin 0.125 MG TABLET PO SCH (08:59)
[2021-11-30] MEDS: carvediloL 25 MG TABLET PO SCH ×2 (08:59→17:51)
[2021-11-30] MEDS: amLODIPine 5 MG TABLET PO SCH (08:59)
[2021-11-30] MEDS: cefTRIAXone 2,000 MG in 0.9 % Sodium Chloride Mini Bag 100 ML IVPB SCH (09:00)
[2021-11-30] MEDS: Multivit/Ca/Min/Fe/FA 1 TAB TABLET PO SCH (09:00)
[2021-11-30] MEDS: Furosemide 20 MG/2 ML VIAL IVP SCH (09:00)
[2021-11-30] MEDS: Doxycycline 100 MG in 0.9 % Sodium Chloride Mini Bag 100 ML IVPB SCH ×2 (09:01→20:33)
[2021-11-30] MEDS: [UNRECOGNIZED DRUG - OTHER] PO SCH ×2 (09:02→17:51)
[2021-11-30] MEDS ORDERED: Trolamine Salicylate/Aloe Vera 85 APPL/85 GM TUBE TP PRN (10:14)
[2021-11-30 10:36] LABS: Adenovirus Not Detected (Not Detect); Coronavirus 229E Not Detected (Not Detect); Coronavirus HKU1 Not Detected (Not Detect); Coronavirus NL63 Not Detected (Not Detect); Coronavirus OC43 Not Detected (Not Detect); SARS-CoV-2 Not Detected (Not Detect)
[2021-11-30 10:37] LABS: Bordetella Pertussis Not Detected (Not Detect); Chlamydophila pneumoniae Not Detected (Not Detect); Human Metapneumovirus Not Detected (Not Detect); Human Rhinovirus/Enterovirus Not Detected (Not Detect); Influenza A Subtype 2009 H1 Not Detected (Not Detect); Influenza B Not Detected (Not Detect); Mycoplasma pneumoniae Not Detected (Not Detect); Parainfluenza Virus 1 Not Detected (Not Detect); Parainfluenza Virus 2 Not Detected (Not Detect); Parainfluenza Virus 3 Not Detected (Not Detect); Parainfluenza Virus 4 Not Detected (Not Detect); Respiratory Syncytial Virus Not Detected (Not Detect)
[2021-12-01] MEDS: *HR* Enoxaparin 40 MG/0.4 ML SYRINGE SQ SCH (05:35)
[2021-12-01 07:39] LABS: Hematocrit 35.6 % (35.3-44.9); Hemoglobin 11.6 g/dL (11.5-15.4); Mean Corpuscular HGB Conc 32.6 g/dL (31.6-35.5); Mean Corpuscular Volume 95.2 fL (83.0-100.0); Mean Platelet Volume 9.6 fL (9.4-12.4); Platelet Count 309 K/mcL (140-400); Red Blood Count 3.74 M/mcL (3.82-4.97); Red Cell Distribution Width 12.6 % (11.5-14.5); White Blood Count 7.5 K/mcL (4.3-11.1)
[2021-12-01 07:44] LABS: BUN/Creatinine Ratio 29 (6-26); Blood Urea Nitrogen 20 mg/dL (8-23); Calcium 9.2 mg/dL (8.6-10.3); Carbon Dioxide 30 mEq/L (23-29); Chloride 102 mEq/L (98-107); Glucose 98 mg/dL (70-105); Osmolality,Calculated 295 (280-300); Potassium 3.7 mEq/L (3.5-5.1); Sodium 141 mEq/L (136-145); eGFR For African Americans > 60 (> 60); eGFR For Non-African Americans > 60 (> 60)
[2021-12-01] MEDS ORDERED: Furosemide 20 MG TABLET PO SCH (09:00)
[2021-12-01] MEDS: *HR* Digoxin 0.125 MG TABLET PO SCH (09:15)
[2021-12-01] MEDS: amLODIPine 5 MG TABLET PO SCH (09:15)
[2021-12-01] MEDS: Multivit/Ca/Min/Fe/FA 1 TAB TABLET PO SCH (09:15)
[2021-12-01] MEDS: cefTRIAXone 2,000 MG in 0.9 % Sodium Chloride Mini Bag 100 ML IVPB SCH (09:16)
[2021-12-01] MEDS: carvediloL 25 MG TABLET PO SCH (09:16)
[2021-12-01] MEDS: Aspirin Enteric Coated 81 MG Tablet PO SCH (09:16)
[2021-12-01] MEDS: [UNRECOGNIZED DRUG - OTHER] PO SCH (09:17)
[2021-12-01] MEDS: Doxycycline 100 MG in 0.9 % Sodium Chloride Mini Bag 100 ML IVPB SCH (09:20)
[2021-12-01 11:20] VITALS: BP 115/50; PULSE 58; RESP 14; TEMP 97.4; O2SAT 97
== END 2021-12-01 14:14 | disposition home health service (06) | DRG 189 ==
LOC: EMEROOPIK 13:18 → INPPIK 13:18
PROVIDERS: ADMIT Nurse Practitioner Family; ATTEND Nurse Practitioner Family